=== PATIENT | male | born 1955 | race Caucasian/White ===

== ENCOUNTER 2019-11-25 10:40 | Inpatient (IN) ==
[2019-11-25] MEDS ORDERED: Isovue-370 500 ML BOTTLE IVP ONE (10:53)
[2019-11-25] MEDS ORDERED: methylPREDNISolone 125 MG/2 ML VIAL IVP ONE (11:16)
[2019-11-25] MEDS ORDERED: Ipratropium/Albuterol Neb 3 ML IH ONE (11:16)
[2019-11-25 11:20] LABS: Basophils % 0.3 %; Eosinophils # 0.1 K/mcL (0.0-0.6); Eosinophils % 0.4 %; Hematocrit 34.2 % (37.5-50.1); Hemoglobin 10.7 g/dL (12.9-16.9); Immature Granulocytes % 0.3 % (0-4); Lymphocytes # 1.3 K/mcL (0.6-4.6); Lymphocytes % 11.4 %; Mean Corpuscular HGB Conc 31.3 g/dL (31.6-35.5); Mean Corpuscular Hemoglobin 29.2 pg (28.0-33.3); Mean Corpuscular Volume 93.2 fL (83.0-100.0); Mean Platelet Volume 9.9 fL (9.4-12.4); Monocytes % 8.5 %; Neutrophils # 9.1 K/mcL (1.6-8.9); Platelet Count 306 K/mcL (140-400); Red Blood Count 3.67 M/mcL (4.19-5.50); Red Cell Distribution Width 13.8 % (11.5-14.5); Segmented Neutrophils % 79.1 %; White Blood Count 11.5 K/mcL (4.3-11.1)
[2019-11-25 11:39] LABS: Calcium 9.3 mg/dL (8.6-10.3); Potassium 4.7 mEq/L (3.5-5.1)
[2019-11-25 11:45] LABS: Troponin I 3.58 ng/mL (< 0.04)
[2019-11-25] MEDS ORDERED: cefTRIAXone 1,000 MG in Water for inj. (sterile) 10 ML IVP ONE (12:18)
[2019-11-25] MEDS ORDERED: 0.9 % Sodium Chloride 1,000 ML IVC ONE (12:22)
[2019-11-25] MEDS ORDERED: Azithromycin 500 MG in 0.9 % Sodium Chloride 250 ML IVPB ONE (12:22)
[2019-11-25] MEDS ORDERED: Aspirin 81 MG TAB.CHEW PO ONE (13:23)
[2019-11-25] MEDS ORDERED: *HR* Heparin 5,000 UNIT/ML VIAL IVP ONE (13:31)
[2019-11-25] MEDS ORDERED: *HR* Heparin 5,000 UNIT/ML VIAL IVP PRN ×2 (13:31)
[2019-11-25] MEDS ORDERED: Heparin 25,000 UNIT/250 ML D5W 25,000 UNIT/250 ML IV.SOLN IVC SCH ×2 (13:45→13:48)
[2019-11-25 14:04] LABS: INR 1.1; Prothrombin Time 12.7 Seconds (9.4-12.1)
[2019-11-25 14:06] LABS: Activated Partial Thrombo Time 39.5 Seconds (26.0-36.0)
[2019-11-25 14:37] LABS: Albumin 3.9 g/dL (3.5-5.7); Albumin/Globulin Ratio 1.2 (1.1-2.2); Bilirubin,Direct 0.2 mg/dL (0.0-0.2); Bilirubin,Indirect 0.3 mg/dL (0.0-1.0); Bilirubin,Total 0.5 mg/dL (0.3-1.0); Globulin 3.3 g/dL (2.4-3.5); Total Protein 7.2 g/dL (6.4-8.9)
[2019-11-25] MEDS ORDERED: Nitroglycerin 0.4 MG TAB.SUBL SL PRN (14:52)
[2019-11-25 14:53] LABS: Adenovirus Not Detected (Not Detect); Coronavirus 229E Not Detected (Not Detect); Coronavirus HKU1 Not Detected (Not Detect); Coronavirus NL63 Not Detected (Not Detect); Coronavirus OC43 Not Detected (Not Detect); Human Metapneumovirus Not Detected (Not Detect); Human Rhinovirus/Enterovirus Not Detected (Not Detect)
[2019-11-25 14:54] LABS: Bordetella Pertussis Not Detected (Not Detect); Chlamydophila pneumoniae Not Detected (Not Detect); Influenza A Subtype 2009 H1 Not Detected (Not Detect); Influenza B Not Detected (Not Detect); Mycoplasma pneumoniae Not Detected (Not Detect); Parainfluenza Virus 1 Not Detected (Not Detect); Parainfluenza Virus 2 Not Detected (Not Detect); Parainfluenza Virus 3 Not Detected (Not Detect); Parainfluenza Virus 4 Not Detected (Not Detect); Respiratory Syncytial Virus Not Detected (Not Detect)
[2019-11-25] MEDS ORDERED: *HR* Dextrose 50 % in Water (Vial) 50 ML VIAL IVP PRN (14:54)
[2019-11-25] MEDS ORDERED: Dextrose Gel 15 GM/37.5 ML TUBE PO PRN ×2 (14:54)
[2019-11-25] MEDS ORDERED: D5% in Water 1,000 ML IVC PRN (14:54)
[2019-11-25] MEDS ORDERED: Ondansetron 4 MG/2 ML VIAL IVP PRN (15:55)
[2019-11-25] MEDS ORDERED: Naloxone 0.4 MG/ML INJ IVP PRN (15:55)
[2019-11-25 17:19] LABS: Hematocrit 34.8 % (37.5-50.1); Hemoglobin 10.9 g/dL (12.9-16.9); Mean Corpuscular HGB Conc 31.3 g/dL (31.6-35.5); Mean Corpuscular Hemoglobin 29.4 pg (28.0-33.3); Mean Corpuscular Volume 93.8 fL (83.0-100.0); Mean Platelet Volume 9.8 fL (9.4-12.4); Platelet Count 292 K/mcL (140-400); Red Blood Count 3.71 M/mcL (4.19-5.50); Red Cell Distribution Width 13.9 % (11.5-14.5); White Blood Count 10.8 K/mcL (4.3-11.1)
[2019-11-25 17:21] LABS: Estimated Average Glucose 171 mg/dl
[2019-11-25] MEDS: Insulin LISPRO 300 UNITS/3 ML VIAL SQ SCH (17:24)
[2019-11-25 17:25] LABS: Heparin anti-factor XA UFH 0.11 IU/mL (0.30-0.70); INR 1.1; Prothrombin Time 12.6 Seconds (9.4-12.1)
[2019-11-25] MEDS: Metoprolol XL (24 HR) Succ 50 MG TAB.ER.24H PO SCH (17:25)
[2019-11-25 17:38] LABS: Chol/HDL Ratio 3.4 (0-4.9); Complement C3 116 mg/dL (87-200)
[2019-11-25] MEDS: Heparin 25,000 UNIT/250 ML D5W 25,000 UNIT/250 ML IV.SOLN IVC SCH (18:31)
[2019-11-25] MEDS: Ipratropium/Albuterol Neb 3 ML IH SCH ×2 (20:07→23:44)
[2019-11-25] MEDS ORDERED: Insulin LISPRO 300 UNITS/3 ML VIAL SQ SCH (21:00)
[2019-11-26] MEDS ORDERED: methylPREDNISolone 125 MG/2 ML VIAL IVP SCH
[2019-11-26 00:41] LABS: Bilirubin,Urine Negative (Negative); Blood,Urine Trace (Negative); Clarity,Urine Clear (Clear); Color,Urine Light-Yellow (Yellow); Glucose,Urine (UA) 70 mg/dL (Normal); Hyaline Casts,Urine Few per lpf (None Seen); Ketones,Urine Trace mg/dL (Negative); Leukocyte Esterase,Urine Negative (Negative); Nitrite,Urine Negative (Negative); PH,Urine 5.5 pH Units (5.0-8.0); Protein,Urine 200 mg/dL (Neg-Trace); RBC,Urine 15-30 per hpf (0-3); Specific Gravity,Urine > 1.030 (1.010-1.025); Squamous Epithelial Cell,Urine Few per hpf (None-Few); Urobilinogen,Urine Normal (Normal); WBC,Urine 0-3 per hpf (0-3)
[2019-11-26 00:54] LABS: Sodium, Urine 13.1 mEq/L
[2019-11-26 01:19] LABS: Basophils % 0.2 %; Eosinophils % 0.1 %; Hematocrit 31.8 % (37.5-50.1); Hemoglobin 10.1 g/dL (12.9-16.9); Immature Granulocytes % 0.4 % (0-4); Lymphocytes # 0.7 K/mcL (0.6-4.6); Lymphocytes % 6.7 %; Mean Corpuscular HGB Conc 31.8 g/dL (31.6-35.5); Mean Corpuscular Volume 94.4 fL (83.0-100.0); Mean Platelet Volume 10.4 fL (9.4-12.4); Monocytes # 0.4 K/mcL (0.0-1.3); Monocytes % 4.1 %; Neutrophils # 9.3 K/mcL (1.6-8.9); Platelet Count 257 K/mcL (140-400); Red Blood Count 3.37 M/mcL (4.19-5.50); Red Cell Distribution Width 14.1 % (11.5-14.5); Segmented Neutrophils % 88.5 %; White Blood Count 10.5 K/mcL (4.3-11.1)
[2019-11-26 01:43] LABS: Albumin 3.5 g/dL (3.5-5.7); Albumin/Globulin Ratio 1.1 (1.1-2.2); Bilirubin,Total 0.4 mg/dL (0.3-1.0); Calcium 8.8 mg/dL (8.6-10.3); Globulin 3.3 g/dL (2.4-3.5); Total Protein 6.8 g/dL (6.4-8.9); Troponin I 7.78 ng/mL (< 0.04)
[2019-11-26] MEDS: Ipratropium/Albuterol Neb 3 ML IH SCH ×6 (04:08→23:08)
[2019-11-26] MEDS: Insulin LISPRO 300 UNITS/3 ML VIAL SQ SCH ×3 (08:02→16:53)
[2019-11-26] MEDS: Metoprolol XL (24 HR) Succ 50 MG TAB.ER.24H PO SCH (08:04)
[2019-11-26] MEDS ORDERED: Perflutren Lipid Microsphere 1.3 ML in 0.9 % Sodium Chloride 8.7 ML IVP PRN (09:20)
[2019-11-26] MEDS ORDERED: Furosemide 40 MG/4 ML VIAL IVP ONE ×2 (09:23→12:30)
[2019-11-26] MEDS ORDERED: Azithromycin 500 MG in 0.9 % Sodium Chloride 250 ML IVPB ONE (09:27)
[2019-11-26] MEDS ORDERED: Albumin 25% 25gram/100mL 25 GM/100 ML IV.SOLN IVC SCH (09:30)
[2019-11-26] MEDS: Insulin DETEMIR 100 UNIT/ML X5UNITS SQ SCH ×2 (09:35→19:22)
[2019-11-26] MEDS: predniSONE 20 MG TABLET PO SCH (09:35)
[2019-11-26] MEDS: Doxycycline 100 MG CAPSULE PO SCH ×2 (11:06→19:21)
[2019-11-26] MEDS: cefTRIAXone 1,000 MG in Water for inj. (sterile) 10 ML IVP SCH (11:06)
[2019-11-26] MEDS: Albumin 25% 25gram/100mL 25 GM/100 ML IV.SOLN IVPB SCH ×3 (11:07→23:10)
[2019-11-26] MEDS: Aspirin 81 MG TAB.CHEW PO SCH (11:07)
[2019-11-26] MEDS ORDERED: Insulin LISPRO 300 UNITS/3 ML VIAL SQ SCH (15:24)
[2019-11-26] MEDS: Heparin 25,000 UNIT/250 ML D5W 25,000 UNIT/250 ML IV.SOLN IVC SCH (18:24)
[2019-11-27 01:28] LABS: Basophils % 0.2 %; Eosinophils % 0.1 %; Hematocrit 25.9 % (37.5-50.1); Immature Granulocytes % 0.7 % (0-4); Lymphocytes # 0.8 K/mcL (0.6-4.6); Lymphocytes % 6.7 %; Mean Corpuscular HGB Conc 31.7 g/dL (31.6-35.5); Mean Corpuscular Volume 91.5 fL (83.0-100.0); Mean Platelet Volume 10.7 fL (9.4-12.4); Monocytes # 1.2 K/mcL (0.0-1.3); Monocytes % 9.7 %; Neutrophils # 9.9 K/mcL (1.6-8.9); Platelet Count 255 K/mcL (140-400); Red Blood Count 2.83 M/mcL (4.19-5.50); Segmented Neutrophils % 82.6 %
[2019-11-27 01:30] LABS: Hemoglobin 8.2 g/dL (12.9-16.9)
[2019-11-27 01:45] LABS: Calcium 9.2 mg/dL (8.6-10.3); Potassium 4.8 mEq/L (3.5-5.1)
[2019-11-27] MEDS: Ipratropium/Albuterol Neb 3 ML IH SCH ×6 (03:16→23:48)
[2019-11-27] MEDS: Albumin 25% 25gram/100mL 25 GM/100 ML IV.SOLN IVPB SCH (03:58)
[2019-11-27] MEDS: Metoprolol XL (24 HR) Succ 50 MG TAB.ER.24H PO SCH (07:34)
[2019-11-27] MEDS: Doxycycline 100 MG CAPSULE PO SCH (07:34)
[2019-11-27] MEDS: Insulin DETEMIR 100 UNIT/ML X5UNITS SQ SCH ×2 (07:35→20:56)
[2019-11-27] MEDS: Aspirin 81 MG TAB.CHEW PO SCH (07:35)
[2019-11-27] MEDS: predniSONE 20 MG TABLET PO SCH (07:35)
[2019-11-27] MEDS: cefTRIAXone 1,000 MG in Water for inj. (sterile) 10 ML IVP SCH (07:36)
[2019-11-27] MEDS: Insulin LISPRO 300 UNITS/3 ML VIAL SQ SCH ×3 (07:37→16:56)
[2019-11-27] MEDS ORDERED: Azithromycin 250 MG TABLET PO SCH (09:00)
[2019-11-27] MEDS ORDERED: Albumin 25% 25gram/100mL 25 GM/100 ML IV.SOLN IVPB ONE (10:39)
[2019-11-27] MEDS ORDERED: Piperacillin/Tazobactam 3.375 GM in 0.9 % Sodium Chloride Mini Bag 100 ML IVPB SCH (11:00)
[2019-11-27] MEDS ORDERED: Furosemide 20 MG/2 ML VIAL IVP ONE (11:14)
[2019-11-27] MEDS: Piperacillin/Tazobactam 3.375 GM in 0.9 % Sodium Chloride Mini Bag 100 ML IVPB SCH ×2 (11:29→20:07)
[2019-11-27] MEDS: Pantoprazole 40 MG VIAL IVP SCH (11:49)
[2019-11-27] MEDS ORDERED: Furosemide 40 MG/4 ML VIAL IVP ONE (12:00)
[2019-11-27] MEDS ORDERED: *HR* FentaNYL (PF) 100 MCG/2 ML VIAL ONE (15:18)
[2019-11-27] MEDS ORDERED: Lidocaine -MPF 2% 2 ML VIAL ONE (15:19)
[2019-11-27] MEDS ORDERED: Lidocaine -MPF 4% 5 ML AMPUL ONE (15:19)
[2019-11-27] MEDS ORDERED: Dexamethasone 4 MG/ML VIAL ONE (15:19)
[2019-11-27] MEDS ORDERED: Ondansetron 4 MG/2 ML VIAL ONE (15:19)
[2019-11-27] MEDS ORDERED: *HR* Etomidate 40 MG/20 ML VIAL IVP ONE (15:22)
[2019-11-27] MEDS ORDERED: *HR* EPINEPHrine 1 MG/10 ML SYRINGE INTRATRACH ONE (15:50)
[2019-11-27] MEDS: MethylPREDNISolone 40 MG/ML VIAL IVP SCH ×2 (16:56→23:31)
[2019-11-27] MEDS: Doxycycline 100 MG in 0.9 % Sodium Chloride Mini Bag 100 ML IVPB SCH (16:56)
[2019-11-27] MEDS ORDERED: Insulin LISPRO 300 UNITS/3 ML VIAL SQ SCH ×2 (17:36)
[2019-11-27 21:02] LABS: Appearance of Body Fluid Cloudy (Clear); Source of Body Fluid RIGHT UPPER LOBE LUN; Volume of Body Fluid 16 mL
[2019-11-27 21:28] LABS: Appearance of Body Fluid Clear (Clear); Source of Body Fluid RIGHT UPPER LOBE LUN; Volume of Body Fluid 17 mL
[2019-11-28] MEDS: Piperacillin/Tazobactam 3.375 GM in 0.9 % Sodium Chloride Mini Bag 100 ML IVPB SCH ×3 (02:47→19:21)
[2019-11-28] MEDS: Ipratropium/Albuterol Neb 3 ML IH SCH ×6 (04:06→23:22)
[2019-11-28 05:04] LABS: Hematocrit 26.7 % (37.5-50.1); Hemoglobin 8.6 g/dL (12.9-16.9); Immature Granulocytes % 0.8 % (0-4); Lymphocytes # 0.4 K/mcL (0.6-4.6); Lymphocytes % 5.7 %; Mean Corpuscular HGB Conc 32.2 g/dL (31.6-35.5); Mean Corpuscular Hemoglobin 29.6 pg (28.0-33.3); Mean Corpuscular Volume 91.8 fL (83.0-100.0); Mean Platelet Volume 10.8 fL (9.4-12.4); Monocytes # 0.2 K/mcL (0.0-1.3); Neutrophils # 6.7 K/mcL (1.6-8.9); Platelet Count 239 K/mcL (140-400); Red Blood Count 2.91 M/mcL (4.19-5.50); Red Cell Distribution Width 14.3 % (11.5-14.5); Segmented Neutrophils % 91.5 %; White Blood Count 7.3 K/mcL (4.3-11.1)
[2019-11-28 05:32] LABS: Calcium 9.2 mg/dL (8.6-10.3)
[2019-11-28] MEDS ORDERED: Insulin LISPRO 300 UNITS/3 ML VIAL SQ SCH (06:00)
[2019-11-28] MEDS: Doxycycline 100 MG in 0.9 % Sodium Chloride Mini Bag 100 ML IVPB SCH ×2 (06:06→17:08)
[2019-11-28] MEDS: MethylPREDNISolone 40 MG/ML VIAL IVP SCH ×2 (07:37→17:09)
[2019-11-28] MEDS: Pantoprazole 40 MG VIAL IVP SCH (07:37)
[2019-11-28] MEDS: Insulin DETEMIR 100 UNIT/ML X5UNITS SQ SCH ×2 (07:38→21:22)
[2019-11-28] MEDS: Aspirin 81 MG TAB.CHEW PO SCH (07:38)
[2019-11-28] MEDS: Metoprolol XL (24 HR) Succ 50 MG TAB.ER.24H PO SCH (07:38)
[2019-11-28 07:51] LABS: Serine Protease-3 Antibody 6 AU/mL (0-19)
[2019-11-28] MEDS ORDERED: Furosemide 40 MG in 0.9 % Sodium Chloride 50 ML IV ONE (10:36)
[2019-11-28] MEDS ORDERED: Insulin DETEMIR 100 UNIT/ML X5UNITS SQ SCH (11:00)
[2019-11-28] MEDS: Insulin LISPRO 300 UNITS/3 ML VIAL SQ SCH ×4 (11:27→21:21)
[2019-11-28] MEDS ORDERED: Insulin DETEMIR 100 UNIT/ML X5UNITS SQ ONE (11:42)
[2019-11-29] MEDS: MethylPREDNISolone 40 MG/ML VIAL IVP SCH ×4 (00:06→23:18)
[2019-11-29 01:24] LABS: Basophils % 0.1 %; Eosinophils % 0.1 %; Hematocrit 26.5 % (37.5-50.1); Hemoglobin 8.5 g/dL (12.9-16.9); Immature Granulocytes % 1.1 % (0-4); Lymphocytes # 0.6 K/mcL (0.6-4.6); Lymphocytes % 5.9 %; Mean Corpuscular HGB Conc 32.1 g/dL (31.6-35.5); Mean Corpuscular Hemoglobin 30.2 pg (28.0-33.3); Mean Corpuscular Volume 94.3 fL (83.0-100.0); Mean Platelet Volume 10.8 fL (9.4-12.4); Monocytes # 0.7 K/mcL (0.0-1.3); Neutrophils # 8.4 K/mcL (1.6-8.9); Platelet Count 241 K/mcL (140-400); Red Blood Count 2.81 M/mcL (4.19-5.50); Red Cell Distribution Width 14.1 % (11.5-14.5); Segmented Neutrophils % 85.8 %; White Blood Count 9.8 K/mcL (4.3-11.1)
[2019-11-29 01:43] LABS: Calcium 9.5 mg/dL (8.6-10.3); Potassium 4.9 mEq/L (3.5-5.1)
[2019-11-29] MEDS: Piperacillin/Tazobactam 3.375 GM in 0.9 % Sodium Chloride Mini Bag 100 ML IVPB SCH ×2 (02:17→12:03)
[2019-11-29] MEDS: Ipratropium/Albuterol Neb 3 ML IH SCH ×6 (03:45→23:33)
[2019-11-29] MEDS: Insulin LISPRO 300 UNITS/3 ML VIAL SQ SCH ×4 (06:26→21:40)
[2019-11-29] MEDS: Doxycycline 100 MG in 0.9 % Sodium Chloride Mini Bag 100 ML IVPB SCH (06:27)
[2019-11-29] MEDS: Metoprolol XL (24 HR) Succ 50 MG TAB.ER.24H PO SCH (08:07)
[2019-11-29] MEDS: Aspirin 81 MG TAB.CHEW PO SCH (08:07)
[2019-11-29] MEDS: Pantoprazole 40 MG VIAL IVP SCH (08:08)
[2019-11-29] MEDS: Insulin DETEMIR 100 UNIT/ML X5UNITS SQ SCH ×2 (08:08→21:49)
[2019-11-29] MEDS ORDERED: Doxycycline 100 MG CAPSULE PO SCH ×2 (09:00→21:00)
[2019-11-29] MEDS ORDERED: Insulin DETEMIR 100 UNIT/ML X5UNITS SQ ONE (10:09)
[2019-11-29] MEDS ORDERED: *HR* Midazolam HCl 2 MG/2 ML VIAL ONE (10:43)
[2019-11-29] MEDS ORDERED: Nitroglycerin 1,000 MCG/10 ML VIAL IV ONE (10:44)
[2019-11-29] MEDS ORDERED: 0.9 % Sodium Chloride 2,000 ML ONE (10:44)
[2019-11-29] MEDS ORDERED: Heparin 1,000 UNITS/500 mL 500 ML ONE (10:44)
[2019-11-29] MEDS ORDERED: *HR* Heparin 10,000 UNIT/10 ML VIAL ONE (10:44)
[2019-11-29] MEDS ORDERED: ISOVUE-370 200 ML INFUS..BTL ONE (10:44)
[2019-11-29] MEDS ORDERED: Acetaminophen 325 MG TABLET PO PRN (11:35)
[2019-11-29] MEDS ORDERED: *HR* Heparin 5,000 UNIT/ML VIAL IVP ONE (13:22)
[2019-11-29] MEDS ORDERED: *HR* Heparin 5,000 UNIT/ML VIAL IVP PRN (13:22)
[2019-11-29 14:22] LABS: Hematocrit 28.5 % (37.5-50.1); Hemoglobin 8.8 g/dL (12.9-16.9); Mean Corpuscular HGB Conc 30.9 g/dL (31.6-35.5); Mean Corpuscular Hemoglobin 29.1 pg (28.0-33.3); Mean Corpuscular Volume 94.4 fL (83.0-100.0); Mean Platelet Volume 10.9 fL (9.4-12.4); Platelet Count 276 K/mcL (140-400); Red Blood Count 3.02 M/mcL (4.19-5.50); Red Cell Distribution Width 14.3 % (11.5-14.5)
[2019-11-29] MEDS ORDERED: Furosemide 40 MG/4 ML VIAL IVP ONE (14:24)
[2019-11-29 14:26] LABS: Heparin anti-factor XA UFH 0.06 IU/mL (0.30-0.70); INR 1.1; Prothrombin Time 12.1 Seconds (9.4-12.1)
[2019-11-29] MEDS: Heparin 25,000 UNIT/250 ML D5W 25,000 UNIT/250 ML IV.SOLN IVC SCH (14:35)
[2019-11-29] MEDS ORDERED: Insulin DETEMIR 100 UNIT/ML X5UNITS SQ SCH (21:00)
[2019-11-29] MEDS: *HR* Heparin 5,000 UNIT/ML VIAL IVP PRN (21:40)
[2019-11-29] MEDS: *HR* Acetylcysteine 20% 600 MG/3 ML ORAL SYRINGE PO SCH (21:40)
[2019-11-30 03:43] LABS: Basophils % 0.1 %; Hematocrit 28.5 % (37.5-50.1); Hemoglobin 8.9 g/dL (12.9-16.9); Lymphocytes # 0.8 K/mcL (0.6-4.6); Lymphocytes % 8.5 %; Mean Corpuscular HGB Conc 31.2 g/dL (31.6-35.5); Mean Corpuscular Hemoglobin 29.3 pg (28.0-33.3); Mean Corpuscular Volume 93.8 fL (83.0-100.0); Monocytes # 0.6 K/mcL (0.0-1.3); Monocytes % 6.1 %; Neutrophils # 8.2 K/mcL (1.6-8.9); Platelet Count 275 K/mcL (140-400); Red Blood Count 3.04 M/mcL (4.19-5.50); Red Cell Distribution Width 14.5 % (11.5-14.5); Segmented Neutrophils % 84.3 %; White Blood Count 9.7 K/mcL (4.3-11.1)
[2019-11-30] MEDS: Ipratropium/Albuterol Neb 3 ML IH SCH ×7 (03:45→23:43)
[2019-11-30 04:09] LABS: Calcium 9.7 mg/dL (8.6-10.3); Potassium 5.2 mEq/L (3.5-5.1)
[2019-11-30] MEDS: Insulin LISPRO 300 UNITS/3 ML VIAL SQ SCH ×6 (08:35→20:28)
[2019-11-30] MEDS: MethylPREDNISolone 40 MG/ML VIAL IVP SCH (08:35)
[2019-11-30] MEDS: Metoprolol XL (24 HR) Succ 50 MG TAB.ER.24H PO SCH (08:35)
[2019-11-30] MEDS: Aspirin 81 MG TAB.CHEW PO SCH (08:35)
[2019-11-30] MEDS: Insulin DETEMIR 100 UNIT/ML X5UNITS SQ SCH ×2 (08:38→20:22)
[2019-11-30] MEDS ORDERED: Milrinone Lactate 10 MG/10 ML VIAL IVP ONE (10:23)
[2019-11-30] MEDS: *HR* Acetylcysteine 20% 600 MG/3 ML ORAL SYRINGE PO SCH ×2 (11:02→20:21)
[2019-11-30] MEDS: Milrinone Premix 20 MG/100 ML 20 MG/100 ML BAG IVC SCH ×2 (11:30→21:00)
[2019-11-30] MEDS ORDERED: Furosemide 20 MG TABLET PO PRN (14:17)
[2019-11-30] MEDS: Heparin 25,000 UNIT/250 ML D5W 25,000 UNIT/250 ML IV.SOLN IVC SCH (15:13)
[2019-11-30] MEDS: Azithromycin 500 MG in 0.9 % Sodium Chloride 250 ML IVPB SCH (17:00)
[2019-11-30] MEDS: cefTRIAXone 2,000 MG in Water for inj. (sterile) 20 ML IVP SCH (17:00)
[2019-12-01] MEDS ORDERED: Saline Nasal Spray 44 ML BOTTLE NS PRN (02:40)
[2019-12-01] MEDS: Ipratropium/Albuterol Neb 3 ML IH SCH ×6 (03:14→23:19)
[2019-12-01 05:25] LABS: Hematocrit 28.1 % (37.5-50.1); Hemoglobin 8.9 g/dL (12.9-16.9); Mean Corpuscular HGB Conc 31.7 g/dL (31.6-35.5); Mean Corpuscular Hemoglobin 29.3 pg (28.0-33.3); Mean Corpuscular Volume 92.4 fL (83.0-100.0); Mean Platelet Volume 10.4 fL (9.4-12.4); Platelet Count 282 K/mcL (140-400); Red Blood Count 3.04 M/mcL (4.19-5.50); Red Cell Distribution Width 14.4 % (11.5-14.5); White Blood Count 9.8 K/mcL (4.3-11.1)
[2019-12-01 05:42] LABS: Calcium 8.9 mg/dL (8.6-10.3); Potassium 4.5 mEq/L (3.5-5.1)
[2019-12-01] MEDS: Insulin LISPRO 300 UNITS/3 ML VIAL SQ SCH ×7 (07:42→19:45)
[2019-12-01] MEDS: *HR* Acetylcysteine 20% 600 MG/3 ML ORAL SYRINGE PO SCH ×2 (08:12→20:05)
[2019-12-01] MEDS: Insulin DETEMIR 100 UNIT/ML X5UNITS SQ SCH ×2 (08:13→19:49)
[2019-12-01] MEDS: predniSONE 20 MG TABLET PO SCH (08:14)
[2019-12-01] MEDS: Metoprolol XL (24 HR) Succ 50 MG TAB.ER.24H PO SCH (08:14)
[2019-12-01] MEDS: Aspirin 81 MG TAB.CHEW PO SCH (08:14)
[2019-12-01] MEDS: Milrinone Premix 20 MG/100 ML 20 MG/100 ML BAG IVC SCH (09:23)
[2019-12-01] MEDS: *HR* Heparin 5,000 UNIT/ML VIAL IVP PRN (10:48)
[2019-12-01] MEDS: Heparin 25,000 UNIT/250 ML D5W 25,000 UNIT/250 ML IV.SOLN IVC SCH (12:17)
[2019-12-01] MEDS: Azithromycin 500 MG in 0.9 % Sodium Chloride 250 ML IVPB SCH (16:43)
[2019-12-01] MEDS: cefTRIAXone 2,000 MG in Water for inj. (sterile) 20 ML IVP SCH (16:44)
[2019-12-01] MEDS ORDERED: Furosemide 40 MG/4 ML VIAL IVP ONE (21:46)
[2019-12-02] MEDS: Milrinone Premix 20 MG/100 ML 20 MG/100 ML BAG IVC SCH ×2 (01:14→20:19)
[2019-12-02] MEDS: Ipratropium/Albuterol Neb 3 ML IH SCH ×6 (04:29→23:37)
[2019-12-02] MEDS: predniSONE 20 MG TABLET PO SCH (07:47)
[2019-12-02] MEDS: Insulin LISPRO 300 UNITS/3 ML VIAL SQ SCH ×7 (07:47→20:20)
[2019-12-02] MEDS: Insulin DETEMIR 100 UNIT/ML X5UNITS SQ SCH ×2 (07:47→20:18)
[2019-12-02] MEDS: Aspirin 81 MG TAB.CHEW PO SCH (07:47)
[2019-12-02] MEDS: Metoprolol XL (24 HR) Succ 50 MG TAB.ER.24H PO SCH (07:47)
[2019-12-02] MEDS: Heparin 25,000 UNIT/250 ML D5W 25,000 UNIT/250 ML IV.SOLN IVC SCH (07:49)
[2019-12-02 10:29] LABS: Basophils % 0.2 %; Eosinophils # 0.4 K/mcL (0.0-0.6); Eosinophils % 4.1 %; Hematocrit 29.2 % (37.5-50.1); Hemoglobin 9.3 g/dL (12.9-16.9); Immature Granulocytes % 1.4 % (0-4); Lymphocytes # 1.9 K/mcL (0.6-4.6); Lymphocytes % 19.3 %; Mean Corpuscular HGB Conc 31.8 g/dL (31.6-35.5); Mean Corpuscular Hemoglobin 29.8 pg (28.0-33.3); Mean Corpuscular Volume 93.6 fL (83.0-100.0); Mean Platelet Volume 10.4 fL (9.4-12.4); Monocytes % 9.9 %; Neutrophils # 6.4 K/mcL (1.6-8.9); Platelet Count 293 K/mcL (140-400); Red Blood Count 3.12 M/mcL (4.19-5.50); Red Cell Distribution Width 14.4 % (11.5-14.5); Segmented Neutrophils % 65.1 %; White Blood Count 9.9 K/mcL (4.3-11.1)
[2019-12-02 10:48] LABS: Calcium 9.2 mg/dL (8.6-10.3); Potassium 4.3 mEq/L (3.5-5.1)
[2019-12-02] MEDS: *HR* Acetylcysteine 20% 600 MG/3 ML ORAL SYRINGE PO SCH ×2 (12:27→20:19)
[2019-12-02] MEDS: Azithromycin 500 MG in 0.9 % Sodium Chloride 250 ML IVPB SCH (15:25)
[2019-12-02] MEDS: cefTRIAXone 2,000 MG in Water for inj. (sterile) 20 ML IVP SCH (15:26)
[2019-12-03 00:21] LABS: Basophils % 0.1 %; Eosinophils # 0.2 K/mcL (0.0-0.6); Eosinophils % 1.7 %; Hematocrit 26.1 % (37.5-50.1); Hemoglobin 8.4 g/dL (12.9-16.9); Immature Granulocytes % 1.2 % (0-4); Mean Corpuscular HGB Conc 32.2 g/dL (31.6-35.5); Mean Corpuscular Hemoglobin 29.6 pg (28.0-33.3); Mean Corpuscular Volume 91.9 fL (83.0-100.0); Mean Platelet Volume 10.9 fL (9.4-12.4); Neutrophils # 6.7 K/mcL (1.6-8.9); Platelet Count 299 K/mcL (140-400); Red Blood Count 2.84 M/mcL (4.19-5.50); Red Cell Distribution Width 14.2 % (11.5-14.5)
[2019-12-03 00:29] LABS: Calcium 8.7 mg/dL (8.6-10.3); Potassium 4.8 mEq/L (3.5-5.1)
[2019-12-03] MEDS: Ipratropium/Albuterol Neb 3 ML IH SCH ×6 (03:51→23:45)
[2019-12-03 04:25] LABS: Basophils % 0.1 %; Eosinophils # 0.3 K/mcL (0.0-0.6); Eosinophils % 3.5 %; Hematocrit 26.3 % (37.5-50.1); Hemoglobin 8.4 g/dL (12.9-16.9); Lymphocytes # 2.7 K/mcL (0.6-4.6); Lymphocytes % 27.8 %; Mean Corpuscular HGB Conc 31.9 g/dL (31.6-35.5); Mean Corpuscular Hemoglobin 29.3 pg (28.0-33.3); Mean Corpuscular Volume 91.6 fL (83.0-100.0); Mean Platelet Volume 10.6 fL (9.4-12.4); Monocytes % 10.1 %; Neutrophils # 5.6 K/mcL (1.6-8.9); Platelet Count 291 K/mcL (140-400); Red Blood Count 2.87 M/mcL (4.19-5.50); Red Cell Distribution Width 14.2 % (11.5-14.5); Segmented Neutrophils % 57.5 %; White Blood Count 9.8 K/mcL (4.3-11.1)
[2019-12-03] MEDS: Heparin 25,000 UNIT/250 ML D5W 25,000 UNIT/250 ML IV.SOLN IVC SCH (04:33)
[2019-12-03 04:45] LABS: Calcium 8.9 mg/dL (8.6-10.3); Potassium 4.4 mEq/L (3.5-5.1)
[2019-12-03] MEDS: Insulin LISPRO 300 UNITS/3 ML VIAL SQ SCH ×7 (07:38→20:45)
[2019-12-03] MEDS: Insulin DETEMIR 100 UNIT/ML X5UNITS SQ SCH ×2 (07:38→20:44)
[2019-12-03] MEDS: *HR* Acetylcysteine 20% 600 MG/3 ML ORAL SYRINGE PO SCH ×2 (07:39→20:44)
[2019-12-03] MEDS: predniSONE 20 MG TABLET PO SCH (07:39)
[2019-12-03] MEDS: Metoprolol XL (24 HR) Succ 50 MG TAB.ER.24H PO SCH (07:39)
[2019-12-03] MEDS: Aspirin 81 MG TAB.CHEW PO SCH (07:39)
[2019-12-03] MEDS: cefTRIAXone 2,000 MG in Water for inj. (sterile) 20 ML IVP SCH (15:42)
[2019-12-03] MEDS: Azithromycin 500 MG in 0.9 % Sodium Chloride 250 ML IVPB SCH (15:43)
[2019-12-03] MEDS: Milrinone Premix 20 MG/100 ML 20 MG/100 ML BAG IVC SCH (15:43)
[2019-12-04] MEDS: Heparin 25,000 UNIT/250 ML D5W 25,000 UNIT/250 ML IV.SOLN IVC SCH ×2 (00:18→21:54)
[2019-12-04 00:58] LABS: Basophils % 0.1 %; Eosinophils # 0.4 K/mcL (0.0-0.6); Eosinophils % 3.9 %; Hematocrit 27.7 % (37.5-50.1); Hemoglobin 8.9 g/dL (12.9-16.9); Lymphocytes # 3.1 K/mcL (0.6-4.6); Lymphocytes % 28.7 %; Mean Corpuscular HGB Conc 32.1 g/dL (31.6-35.5); Mean Corpuscular Hemoglobin 29.7 pg (28.0-33.3); Mean Corpuscular Volume 92.3 fL (83.0-100.0); Mean Platelet Volume 10.6 fL (9.4-12.4); Monocytes % 9.5 %; Neutrophils # 6.1 K/mcL (1.6-8.9); Platelet Count 296 K/mcL (140-400); Red Cell Distribution Width 14.4 % (11.5-14.5); Segmented Neutrophils % 56.8 %; White Blood Count 10.7 K/mcL (4.3-11.1)
[2019-12-04 01:18] LABS: Calcium 9.1 mg/dL (8.6-10.3); Potassium 4.3 mEq/L (3.5-5.1)
[2019-12-04] MEDS: Ipratropium/Albuterol Neb 3 ML IH SCH ×5 (04:42→20:22)
[2019-12-04] MEDS: Insulin DETEMIR 100 UNIT/ML X5UNITS SQ SCH ×2 (07:38→21:43)
[2019-12-04] MEDS: Insulin LISPRO 300 UNITS/3 ML VIAL SQ SCH ×7 (07:39→21:45)
[2019-12-04] MEDS: Metoprolol XL (24 HR) Succ 50 MG TAB.ER.24H PO SCH (07:40)
[2019-12-04] MEDS: Aspirin 81 MG TAB.CHEW PO SCH (07:40)
[2019-12-04] MEDS: predniSONE 20 MG TABLET PO SCH (07:40)
[2019-12-04] MEDS: Milrinone Premix 20 MG/100 ML 20 MG/100 ML BAG IVC SCH ×2 (08:16→12:00)
[2019-12-04] MEDS ORDERED: Furosemide 40 MG/4 ML VIAL IVP ONE (17:14)
[2019-12-04] MEDS: Chlorhexidine Rinse 15 ML MOUTHWASH MM SCH (21:43)
[2019-12-05] MEDS: Ipratropium/Albuterol Neb 3 ML IH SCH ×6 (00:03→20:08)
[2019-12-05 01:18] LABS: Basophils % 0.1 %; Eosinophils # 0.3 K/mcL (0.0-0.6); Eosinophils % 3.1 %; Hematocrit 28.4 % (37.5-50.1); Hemoglobin 9.1 g/dL (12.9-16.9); Immature Granulocytes % 0.6 % (0-4); Lymphocytes # 2.8 K/mcL (0.6-4.6); Lymphocytes % 28.9 %; Mean Corpuscular Hemoglobin 30.4 pg (28.0-33.3); Monocytes # 0.8 K/mcL (0.0-1.3); Monocytes % 8.5 %; Neutrophils # 5.7 K/mcL (1.6-8.9); Platelet Count 274 K/mcL (140-400); Red Blood Count 2.99 M/mcL (4.19-5.50); Red Cell Distribution Width 14.7 % (11.5-14.5); Segmented Neutrophils % 58.8 %; White Blood Count 9.7 K/mcL (4.3-11.1)
[2019-12-05 01:38] LABS: Calcium 9.1 mg/dL (8.6-10.3)
[2019-12-05] MEDS: Chlorhexidine Rinse 15 ML MOUTHWASH MM SCH ×2 (05:50→21:11)
[2019-12-05] MEDS ORDERED: Nitroglycerin 0 MG/0 ML INFUS..BTL IVC ONE ×2 (06:25→09:44)
[2019-12-05] MEDS ORDERED: NiCARdipine 2.5 MG/10 ML Syringe IVPB ONE (06:26)
[2019-12-05] MEDS ORDERED: *HR* Midazolam HCl 5 MG/5 ML VIAL IVP ONE (06:33)
[2019-12-05] MEDS ORDERED: *HR* FentaNYL (PF) 1,000 MCG/20 ML VIAL ONE (06:33)
[2019-12-05] MEDS ORDERED: *HR* Rocuronium Bromide 50 MG/5 ML VIAL ONE (06:39)
[2019-12-05] MEDS ORDERED: *HR* PHENYLEPHRINE 1,000 MCG/10 ML SYRINGE IVP ONE (06:39)
[2019-12-05] MEDS ORDERED: *HR* Etomidate 20 MG/10 ML AMPUL IVP ONE (06:40)
[2019-12-05] MEDS ORDERED: Famotidine 20 MG/2 ML VIAL ONE (06:40)
[2019-12-05] MEDS ORDERED: Tranexamic Acid 1,000 MG/10 ML VIAL ONE ×2 (06:42→09:10)
[2019-12-05] MEDS ORDERED: Calcium Gluconate 1,000 MG/10 ML VIAL ONE (06:42)
[2019-12-05] MEDS ORDERED: Protamine Sulfate 250 MG/25 ML VIAL IVP ONE (06:42)
[2019-12-05] MEDS ORDERED: CeFAZolin Syr 2,000MG/20 ML 2,000 MG/20 ML SYRINGE IVPB ONE (07:00)
[2019-12-05] MEDS ORDERED: Norepinephrine 4 MG in 0.9 % Sodium Chloride 250 ML IVC PRN (07:45)
[2019-12-05] MEDS ORDERED: Dextrose 50 % in Water (Vial) 30 ML, Sodium Bicarbonate 20 MEQ, Lidocaine 1% 5 ML, Insu... TH ONE ×3 (07:45)
[2019-12-05] MEDS ORDERED: Insulin Human Regular 100 UNIT in 0.9 % Sodium Chloride 100 ML IV PRN (07:45)
[2019-12-05] MEDS ORDERED: Heparin 15,000 UNIT in 0.9 % Sodium Chloride 500 ML IV ONE (07:45)
[2019-12-05] MEDS ORDERED: Dextrose 50 % in Water (Vial) 30 ML, Sodium Bicarbonate 20 MEQ, Potassium Chloride 15 M... TH ONE (07:45)
[2019-12-05] MEDS ORDERED: Albumin Human 5% 50.0 GM/1,000 ML IV.SOLN ONE (09:43)
[2019-12-05] MEDS ORDERED: niCARdipine 20 MG/200 ML MLS IVC ONE (09:45)
[2019-12-05] MEDS ORDERED: Insulin Regular, Human 100 UNIT/ML IV PRN (11:26)
[2019-12-05] MEDS ORDERED: Potassium Chloride 40 MEQ/200 ML BAG IVPB PRN (11:26)
[2019-12-05] MEDS ORDERED: *HR* Dextrose 50 % in Water (Vial) 50 ML VIAL IVP PRN (11:26)
[2019-12-05] MEDS ORDERED: Ondansetron 4 MG/2 ML VIAL IVP PRN (11:29)
[2019-12-05] MEDS ORDERED: Acetaminophen 650 MG RECTAL SUPP RC PRN (11:29)
[2019-12-05] MEDS ORDERED: 0.9 % Sodium Chloride w KCl 20 MEQ/1,000 ML MLS IVC SCH (11:30)
[2019-12-05] MEDS ORDERED: Calcium Gluconate 1gm/50mL 1 GM/50 ML BAG IVPB PRN (11:30)
[2019-12-05] MEDS ORDERED: Insulin Human Regular 100 UNIT in 0.9 % Sodium Chloride 100 ML IVC SCH (11:30)
[2019-12-05] MEDS: Milrinone Premix 20 MG/100 ML 20 MG/100 ML BAG IVC SCH ×2 (11:57→21:11)
[2019-12-05 12:11] LABS: ABG Base Excess 1 mEq/L (-2 to 3); ABG HCO3 26 mEq/L (21-27); ABG Oxygen Saturation 91 % (95-98); ABG PCO2 48 mmHg (35-45); ABG PH 7.35 pH Units (7.32-7.45); ABG PO2 66 mmHg (85-104); ABG TCO2 28 mEq/L (20-26); Blood Gas VT 600 cc
[2019-12-05 12:22] LABS: Basophils % 0.2 %; Eosinophils % 1.9 %; Immature Granulocytes % 1.4 % (0-4); Lymphocytes # 2.5 K/mcL (0.6-4.6); Lymphocytes % 13.8 %; Mean Corpuscular HGB Conc 32.1 g/dL (31.6-35.5); Mean Corpuscular Hemoglobin 29.7 pg (28.0-33.3); Mean Corpuscular Volume 92.6 fL (83.0-100.0); Mean Platelet Volume 10.6 fL (9.4-12.4); Monocytes % 5.7 %; Red Blood Count 3.23 M/mcL (4.19-5.50); Red Cell Distribution Width 14.9 % (11.5-14.5)
[2019-12-05 12:37] LABS: Activated Partial Thrombo Time 29.8 Seconds (26.0-36.0)
[2019-12-05 12:38] LABS: BUN/Creatinine Ratio 46 (6-26); Blood Urea Nitrogen 62 mg/dL (8-23); Calcium 9.2 mg/dL (8.6-10.3); Carbon Dioxide 27 mEq/L (23-29); Chloride 111 mEq/L (98-107); Glucose 103 mg/dL (70-105); Magnesium 2.6 mg/dL (1.6-2.6); Osmolality,Calculated 314 (280-300); Potassium 4.9 mEq/L (3.5-5.1); Sodium 143 mEq/L (136-145); eGFR For African Americans > 60 (> 60); eGFR For Non-African Americans 53 (> 60)
[2019-12-05 12:40] LABS: INR 1.3; Prothrombin Time 14.6 Seconds (9.4-12.1)
[2019-12-05 13:02] LABS: Eosinophils # 0.4 K/mcL (0.0-0.6); White Blood Count 18.2 K/mcL (4.3-11.1)
[2019-12-05 13:05] LABS: Hematocrit 29.9 % (37.5-50.1); Hemoglobin 9.6 g/dL (12.9-16.9); Platelet Count 116 K/mcL (140-400)
[2019-12-05 13:06] LABS: Platelet Estimate Decreased (Normal)
[2019-12-05] MEDS: *HR* FentaNYL (PF) 100 MCG/2 ML VIAL IVP PRN ×3 (13:16→22:59)
[2019-12-05] MEDS: niCARdipine 20 MG/200 ML MLS IVC SCH ×4 (13:16→22:41)
[2019-12-05] MEDS: *HR* OxyCODONE/APAP 5/325 TABLET PO PRN ×3 (13:23→22:34)
[2019-12-05] MEDS: Metoclopramide 10 MG/2 ML VIAL IVP SCH ×3 (13:23→22:59)
[2019-12-05] MEDS: predniSONE 10 MG TABLET PO SCH (13:31)
[2019-12-05] MEDS: Pantoprazole 40 MG VIAL IVP SCH (13:45)
[2019-12-05] MEDS: 0.9 % Sodium Chloride 1,000 ML IVC SCH (13:46)
[2019-12-05] MEDS ORDERED: Lidocaine 2% Syringe 100 MG/5 ML IVP ONE (13:58)
[2019-12-05] MEDS ORDERED: *HR* Phenylephrine 10 MG/ML VIAL IVC ONE (13:58)
[2019-12-05] MEDS ORDERED: Tranexamic Acid 1,000 MG/10 ML VIAL IR ONE (13:58)
[2019-12-05] MEDS ORDERED: Sodium Bicarbonate 50 MEQ/50 ML VIAL IVP ONE (13:58)
[2019-12-05] MEDS ORDERED: Albumin 25% 25gram/100mL 25 GM/100 ML IV.SOLN IVPB ONE (13:58)
[2019-12-05] MEDS ORDERED: Mannitol 25% vial 12.5 GM/50 ML VIAL IVPB ONE (13:58)
[2019-12-05] MEDS ORDERED: *HR* Heparin 10,000 UNIT/10 ML VIAL IR ONE (13:58)
[2019-12-05 15:02] LABS: ABG Base Excess -1 mEq/L (-2 to 3); ABG HCO3 23 mEq/L (21-27); ABG Oxygen Saturation 92 % (95-98); ABG PCO2 37 mmHg (35-45); ABG PO2 63 mmHg (85-104); ABG TCO2 25 mEq/L (20-26)
[2019-12-05] MEDS: Albumin Human 5% 12.5 GM/250 ML IV.SOLN IVPB PRN ×2 (15:30→22:36)
[2019-12-05 15:54] LABS: ABG Base Excess 0 mEq/L (-2 to 3); ABG HCO3 24 mEq/L (21-27); ABG Oxygen Saturation 92 % (95-98); ABG PCO2 36 mmHg (35-45); ABG PH 7.43 pH Units (7.32-7.45); ABG PO2 61 mmHg (85-104); ABG TCO2 25 mEq/L (20-26)
[2019-12-05] MEDS: CeFAZolin 2 GM/120 ML BAG IVPB SCH ×2 (16:20→23:10)
[2019-12-05 16:21] LABS: Hematocrit 28.4 % (37.5-50.1); Hemoglobin 9.1 g/dL (12.9-16.9); Mean Corpuscular Hemoglobin 29.5 pg (28.0-33.3); Mean Corpuscular Volume 92.2 fL (83.0-100.0); Platelet Count 165 K/mcL (140-400); Red Blood Count 3.08 M/mcL (4.19-5.50); Red Cell Distribution Width 15.3 % (11.5-14.5)
[2019-12-05 16:38] LABS: INR 1.2; Prothrombin Time 13.3 Seconds (9.4-12.1)
[2019-12-05 16:41] LABS: Activated Partial Thrombo Time 29.2 Seconds (26.0-36.0)
[2019-12-05] MEDS: Norepinephrine 4 MG/254 ML IV.SOLN IVC SCH (18:38)
[2019-12-06] MEDS: niCARdipine 20 MG/200 ML MLS IVC SCH ×3 (00:28→21:14)
[2019-12-06] MEDS: *HR* FentaNYL (PF) 100 MCG/2 ML VIAL IVP PRN ×2 (02:16→06:53)
[2019-12-06] MEDS: *HR* OxyCODONE/APAP 5/325 TABLET PO PRN ×4 (05:10→23:49)
[2019-12-06] MEDS: Metoclopramide 10 MG/2 ML VIAL IVP SCH ×4 (05:11→23:48)
[2019-12-06 05:35] LABS: Basophils % 0.1 %; Eosinophils # 0.1 K/mcL (0.0-0.6); Eosinophils % 1.1 %; Hematocrit 26.1 % (37.5-50.1); Hemoglobin 8.3 g/dL (12.9-16.9); Immature Granulocytes % 0.6 % (0-4); Lymphocytes # 1.7 K/mcL (0.6-4.6); Lymphocytes % 14.2 %; Mean Corpuscular HGB Conc 31.8 g/dL (31.6-35.5); Mean Corpuscular Hemoglobin 29.6 pg (28.0-33.3); Mean Corpuscular Volume 93.2 fL (83.0-100.0); Mean Platelet Volume 10.9 fL (9.4-12.4); Monocytes # 1.1 K/mcL (0.0-1.3); Monocytes % 8.9 %; Platelet Count 127 K/mcL (140-400); Red Cell Distribution Width 15.2 % (11.5-14.5); Segmented Neutrophils % 75.1 %
[2019-12-06 05:36] LABS: INR 1.2; Prothrombin Time 13.8 Seconds (9.4-12.1)
[2019-12-06 05:39] LABS: Activated Partial Thrombo Time 32.1 Seconds (26.0-36.0)
[2019-12-06 05:52] LABS: Calcium 8.5 mg/dL (8.6-10.3); Magnesium 2.1 mg/dL (1.6-2.6)
[2019-12-06] MEDS ORDERED: *HR* Dextrose 50 % in Water (Vial) 50 ML VIAL IVP PRN (07:45)
[2019-12-06] MEDS ORDERED: Dextrose Gel 15 GM/37.5 ML TUBE PO PRN ×2 (07:45)
[2019-12-06] MEDS ORDERED: D5% in Water 1,000 ML IVC PRN (07:45)
[2019-12-06] MEDS: carvediloL 6.25 MG TABLET PO SCH ×2 (09:13→17:47)
[2019-12-06] MEDS: Furosemide 20 MG/2 ML VIAL IVP SCH ×2 (09:14→20:43)
[2019-12-06] MEDS: Aspirin Enteric Coated 81 MG Tablet PO SCH (09:14)
[2019-12-06] MEDS: Chlorhexidine Rinse 15 ML MOUTHWASH MM SCH ×2 (09:14→20:43)
[2019-12-06] MEDS: predniSONE 10 MG TABLET PO SCH (09:14)
[2019-12-06] MEDS: Pantoprazole 40 MG VIAL IVP SCH (09:14)
[2019-12-06] MEDS ORDERED: *HR* FentaNYL (PF) 100 MCG/2 ML VIAL IVP PRN (11:29)
[2019-12-06] MEDS: Insulin LISPRO 300 UNITS/3 ML VIAL SQ SCH ×2 (12:10→17:55)
[2019-12-06] MEDS ORDERED: Amiodarone Premix 150 MG/100 ML BAG IVPB ONE ×2 (14:57→15:01)
[2019-12-06] MEDS ORDERED: Amiodarone Premix 360 MG/200 ML BAG IVC ONE (15:01)
[2019-12-06] MEDS: *HR* Heparin 5,000 UNIT/ML VIAL SQ SCH (17:47)
[2019-12-06] MEDS ORDERED: Insulin LISPRO 300 UNITS/3 ML VIAL SQ SCH (21:00)
[2019-12-06] MEDS: Norepinephrine 4 MG/254 ML IV.SOLN IVC SCH (21:14)
[2019-12-06] MEDS: 0.9 % Sodium Chloride 1,000 ML IVC SCH (21:14)
[2019-12-06] MEDS: Amiodarone Premix 360 MG/200 ML BAG IVC SCH (22:29)
[2019-12-07] MEDS: *HR* OxyCODONE/APAP 5/325 TABLET PO PRN ×4 (03:57→23:05)
[2019-12-07 04:27] LABS: Basophils % 0.2 %; Eosinophils # 0.2 K/mcL (0.0-0.6); Eosinophils % 1.6 %; Hematocrit 25.5 % (37.5-50.1); Hemoglobin 8.2 g/dL (12.9-16.9); Immature Granulocytes % 0.3 % (0-4); Lymphocytes # 1.6 K/mcL (0.6-4.6); Lymphocytes % 13.7 %; Mean Corpuscular HGB Conc 32.2 g/dL (31.6-35.5); Mean Corpuscular Hemoglobin 30.9 pg (28.0-33.3); Mean Corpuscular Volume 96.2 fL (83.0-100.0); Mean Platelet Volume 11.4 fL (9.4-12.4); Monocytes # 1.2 K/mcL (0.0-1.3); Monocytes % 10.4 %; Neutrophils # 8.6 K/mcL (1.6-8.9); Platelet Count 113 K/mcL (140-400); Red Blood Count 2.65 M/mcL (4.19-5.50); Red Cell Distribution Width 14.9 % (11.5-14.5); Segmented Neutrophils % 73.8 %; White Blood Count 11.6 K/mcL (4.3-11.1)
[2019-12-07] MEDS: niCARdipine 20 MG/200 ML MLS IVC SCH ×4 (04:33→20:34)
[2019-12-07 04:46] LABS: Calcium 8.7 mg/dL (8.6-10.3); Potassium 5.3 mEq/L (3.5-5.1)
[2019-12-07] MEDS: 0.9 % Sodium Chloride 1,000 ML IVC SCH (05:52)
[2019-12-07] MEDS: *HR* Heparin 5,000 UNIT/ML VIAL SQ SCH ×2 (06:17→17:00)
[2019-12-07] MEDS: Metoclopramide 10 MG/2 ML VIAL IVP SCH ×4 (06:17→23:05)
[2019-12-07] MEDS: carvediloL 6.25 MG TABLET PO SCH ×2 (08:46→16:59)
[2019-12-07] MEDS: Aspirin Enteric Coated 81 MG Tablet PO SCH (08:46)
[2019-12-07] MEDS: Furosemide 20 MG/2 ML VIAL IVP SCH (08:46)
[2019-12-07] MEDS: Chlorhexidine Rinse 15 ML MOUTHWASH MM SCH ×2 (08:46→20:26)
[2019-12-07] MEDS: Amiodarone Premix 360 MG/200 ML BAG IVC SCH ×2 (10:30→23:20)
[2019-12-07] MEDS: Insulin LISPRO 300 UNITS/3 ML VIAL SQ SCH ×3 (11:54→19:46)
[2019-12-07 15:18] LABS: Uric Acid 10.5 mg/dL (2.3-7.6)
[2019-12-07] MEDS ORDERED: Furosemide 40 MG/4 ML VIAL IVP ONE (15:31)
[2019-12-07 17:35] LABS: Protein/Creatinine Ratio,Urine 1.13 mg/mg (0.00-0.20)
[2019-12-07 17:39] LABS: Bilirubin,Urine Negative (Negative); Blood,Urine Negative (Negative); Clarity,Urine Clear (Clear); Color,Urine Light-Yellow (Yellow); Glucose,Urine (UA) 300 mg/dL (Normal); Ketones,Urine Negative (Negative); Leukocyte Esterase,Urine Negative (Negative); Mucus,Urine Few per lpf (None-Few); Nitrite,Urine Negative (Negative); PH,Urine 5.5 pH Units (5.0-8.0); Protein,Urine 100 mg/dL (Neg-Trace); Specific Gravity,Urine 1.023 (1.010-1.025); Squamous Epithelial Cell,Urine Few per hpf (None-Few); Urobilinogen,Urine Normal (Normal)
[2019-12-07] MEDS: Norepinephrine 4 MG/254 ML IV.SOLN IVC SCH (19:46)
[2019-12-07] MEDS ORDERED: Insulin LISPRO 300 UNITS/3 ML VIAL SQ SCH (21:00)
[2019-12-08] MEDS: niCARdipine 20 MG/200 ML MLS IVC SCH ×2 (03:14→07:55)
[2019-12-08] MEDS: 0.9 % Sodium Chloride 1,000 ML IVC SCH (03:14)
[2019-12-08] MEDS: *HR* Heparin 5,000 UNIT/ML VIAL SQ SCH ×2 (06:32→17:12)
[2019-12-08] MEDS: Metoclopramide 10 MG/2 ML VIAL IVP SCH (06:33)
[2019-12-08] MEDS: *HR* OxyCODONE/APAP 5/325 TABLET PO PRN ×3 (06:34→19:36)
[2019-12-08 06:59] LABS: Basophils % 0.1 %; Eosinophils # 0.4 K/mcL (0.0-0.6); Eosinophils % 3.4 %; Hematocrit 25.2 % (37.5-50.1); Hemoglobin 8.1 g/dL (12.9-16.9); Immature Granulocytes % 0.4 % (0-4); Lymphocytes # 1.7 K/mcL (0.6-4.6); Lymphocytes % 15.9 %; Mean Corpuscular HGB Conc 32.1 g/dL (31.6-35.5); Mean Corpuscular Volume 93.3 fL (83.0-100.0); Mean Platelet Volume 11.4 fL (9.4-12.4); Monocytes % 9.5 %; Neutrophils # 7.7 K/mcL (1.6-8.9); Platelet Count 139 K/mcL (140-400); Red Cell Distribution Width 14.6 % (11.5-14.5); Segmented Neutrophils % 70.7 %; White Blood Count 10.9 K/mcL (4.3-11.1)
[2019-12-08 07:17] LABS: Calcium 8.7 mg/dL (8.6-10.3); Potassium 4.7 mEq/L (3.5-5.1)
[2019-12-08] MEDS: Aspirin Enteric Coated 81 MG Tablet PO SCH (07:57)
[2019-12-08] MEDS: carvediloL 6.25 MG TABLET PO SCH ×2 (07:57→17:12)
[2019-12-08] MEDS: Insulin LISPRO 300 UNITS/3 ML VIAL SQ SCH ×4 (07:58→19:36)
[2019-12-08] MEDS: Chlorhexidine Rinse 15 ML MOUTHWASH MM SCH ×2 (07:58→19:35)
[2019-12-08] MEDS ORDERED: Albumin 25% 25gram/100mL 25 GM/100 ML IV.SOLN IVPB ONE (09:00)
[2019-12-08] MEDS ORDERED: *HR* Amiodarone 200 MG TABLET PO SCH (09:00)
[2019-12-08] MEDS ORDERED: Saline Nasal Spray 44 ML BOTTLE NS PRN (09:27)
[2019-12-08] MEDS ORDERED: Naloxone 0.4 MG/ML INJ IVP PRN (09:27)
[2019-12-08] MEDS ORDERED: Nitroglycerin 0.4 MG TAB.SUBL SL PRN (09:27)
[2019-12-08] MEDS ORDERED: Acetaminophen 325 MG TABLET PO PRN (09:27)
[2019-12-08] MEDS ORDERED: D5% in Water 1,000 ML IVC PRN (09:27)
[2019-12-08] MEDS ORDERED: Ondansetron 4 MG/2 ML VIAL IVP PRN (09:27)
[2019-12-08] MEDS ORDERED: Dextrose Gel 15 GM/37.5 ML TUBE PO PRN ×2 (09:27)
[2019-12-08] MEDS ORDERED: *HR* Dextrose 50 % in Water (Vial) 50 ML VIAL IVP PRN (09:27)
[2019-12-08] MEDS ORDERED: Furosemide 40 MG/4 ML VIAL IVP ONE (09:30)
[2019-12-08] MEDS ORDERED: Metoclopramide 10 MG/2 ML VIAL IVP SCH (12:00)
[2019-12-09] MEDS: *HR* OxyCODONE/APAP 5/325 TABLET PO PRN ×2 (03:02→14:20)
[2019-12-09] MEDS: *HR* Heparin 5,000 UNIT/ML VIAL SQ SCH ×2 (05:33→16:01)
[2019-12-09] MEDS: Chlorhexidine Rinse 15 ML MOUTHWASH MM SCH ×2 (08:32→21:21)
[2019-12-09] MEDS: carvediloL 6.25 MG TABLET PO SCH ×2 (08:34→16:01)
[2019-12-09] MEDS: Insulin LISPRO 300 UNITS/3 ML VIAL SQ SCH ×6 (08:34→23:37)
[2019-12-09] MEDS: Insulin DETEMIR 100 UNIT/ML X5UNITS SQ SCH ×2 (08:35→21:37)
[2019-12-09] MEDS ORDERED: Aspirin Enteric Coated 81 MG Tablet PO SCH (09:00)
[2019-12-09] MEDS ORDERED: *HR* Amiodarone 200 MG TABLET PO SCH (09:00)
[2019-12-09 14:26] LABS: Calcium 8.3 mg/dL (8.6-10.3); Potassium 4.9 mEq/L (3.5-5.1)
[2019-12-09] MEDS ORDERED: *HR* Midazolam HCl 2 MG/2 ML VIAL IVP ONE (17:36)
[2019-12-09] MEDS ORDERED: *HR* Midazolam HCl 5 MG/5 ML VIAL IVP ONE ×2 (17:36→19:45)
[2019-12-09] MEDS ORDERED: Perflutren Lipid Microsphere 1.3 ML in 0.9 % Sodium Chloride 8.7 ML IVP PRN (19:14)
[2019-12-09] MEDS ORDERED: *HR* Midazolam HCl 2 MG/2 ML VIAL IV ONE (19:16)
[2019-12-09] MEDS ORDERED: Artificial Tears SOLN 15 ML BOTTLE BOTH EYES PRN (19:16)
[2019-12-09] MEDS ORDERED: *HR* FentaNYL (PF) 100 MCG/2 ML VIAL IVP ONE (19:22)
[2019-12-09] MEDS ORDERED: *HR* Midazolam HCl 2 MG/2 ML VIAL IVP STA (19:43)
[2019-12-09 19:55] LABS: ABG Base Excess -4 mEq/L (-2 to 3); ABG HCO3 21 mEq/L (21-27); ABG Oxygen Saturation 91 % (95-98); ABG PCO2 35 mmHg (35-45); ABG PH 7.38 pH Units (7.32-7.45); ABG PO2 62 mmHg (85-104); ABG TCO2 22 mEq/L (20-26); Blood Gas VT 500 cc
[2019-12-09 19:58] LABS: Basophils % 0.2 %; Eosinophils % 3.7 %; Hemoglobin 8.7 g/dL (12.9-16.9); Immature Granulocytes % 1.1 % (0-4); Lymphocytes % 40.2 %; Mean Corpuscular HGB Conc 31.1 g/dL (31.6-35.5); Mean Corpuscular Volume 96.6 fL (83.0-100.0); Mean Platelet Volume 11.6 fL (9.4-12.4); Monocytes # 1.1 K/mcL (0.0-1.3); Monocytes % 6.5 %; Neutrophils # 8.4 K/mcL (1.6-8.9); Nucleated Red Blood Cells 0.2 /100 WBC (0); Platelet Count 228 K/mcL (140-400); Red Cell Distribution Width 14.6 % (11.5-14.5); Segmented Neutrophils % 48.3 %; White Blood Count 17.4 K/mcL (4.3-11.1)
[2019-12-09 20:00] LABS: Eosinophils # 0.6 K/mcL (0.0-0.6)
[2019-12-09] MEDS ORDERED: Vancomycin 1,250 MG/262.5 ML IV.SOLN IVPB SCH (20:00)
[2019-12-09 20:03] LABS: Prothrombin Time 11.7 Seconds (9.4-12.1)
[2019-12-09 20:06] LABS: Activated Partial Thrombo Time 33.4 Seconds (26.0-36.0)
[2019-12-09 20:07] LABS: Albumin 3.3 g/dL (3.5-5.7); Albumin/Globulin Ratio 1.4 (1.1-2.2); Bilirubin,Direct 0.1 mg/dL (0.0-0.2); Bilirubin,Indirect 0.4 mg/dL (0.0-1.0); Bilirubin,Total 0.5 mg/dL (0.3-1.0); Globulin 2.3 g/dL (2.4-3.5); Magnesium 2.4 mg/dL (1.6-2.6); Phosphorous 4.7 mg/dL (2.7-4.5); Total Protein 5.6 g/dL (6.4-8.9)
[2019-12-09] MEDS: FentaNYL (PF) 1,000 MCG/100 ML IV.SOLN IVC SCH ×2 (20:09→21:29)
[2019-12-09 20:13] LABS: Troponin I 0.39 ng/mL (< 0.04)
[2019-12-09 20:18] LABS: Reactive Lymphocytes Present (Not Present)
[2019-12-09] MEDS ORDERED: 0.9 % Sodium Chloride 1,000 ML ONE ×2 (20:20→21:42)
[2019-12-09] MEDS: Norepinephrine 4 MG/254 ML IV.SOLN IVC SCH (20:51)
[2019-12-09] MEDS ORDERED: Chlorhexidine Rinse 15 ML MOUTHWASH MM SCH (21:00)
[2019-12-09] MEDS: Piperacillin/Tazobactam 3.375 GM in 0.9 % Sodium Chloride Mini Bag 100 ML IVPB SCH (21:20)
[2019-12-09] MEDS: Pantoprazole 40 MG VIAL IVP SCH (21:37)
[2019-12-09] MEDS: Artificial Tears SOLN 15 ML BOTTLE BOTH EYES SCH ×2 (21:37→23:37)
[2019-12-09 22:58] LABS: ABG Base Excess -2 mEq/L (-2 to 3); ABG HCO3 24 mEq/L (21-27); ABG Oxygen Saturation 91 % (95-98); ABG PCO2 46 mmHg (35-45); ABG PH 7.33 pH Units (7.32-7.45); ABG PO2 67 mmHg (85-104); ABG TCO2 26 mEq/L (20-26); Blood Gas VT 500 cc
[2019-12-09] MEDS: Midazolam HCl 50 MG/100 ML IV.SOLN IVC SCH (23:08)
[2019-12-10] MEDS: Amiodarone Premix 360 MG/200 ML BAG IVC SCH ×2 (00:42→14:19)
[2019-12-10] MEDS: Artificial Tears SOLN 15 ML BOTTLE BOTH EYES SCH ×5 (03:07→19:28)
[2019-12-10 03:15] LABS: VBG Ionized Calcium 1.17 mmol/L (1.15-1.35)
[2019-12-10 03:15] LABS: Hematocrit 27.5 % (37.5-50.1); Hemoglobin 8.9 g/dL (12.9-16.9); Mean Corpuscular HGB Conc 32.4 g/dL (31.6-35.5); Mean Corpuscular Hemoglobin 30.9 pg (28.0-33.3); Mean Corpuscular Volume 95.5 fL (83.0-100.0); Mean Platelet Volume 10.5 fL (9.4-12.4); Platelet Count 253 K/mcL (140-400); Red Blood Count 2.88 M/mcL (4.19-5.50); Red Cell Distribution Width 14.3 % (11.5-14.5); White Blood Count 22.1 K/mcL (4.3-11.1)
[2019-12-10 03:35] LABS: Calcium 8.6 mg/dL (8.6-10.3); Magnesium 2.8 mg/dL (1.6-2.6); Potassium 5.5 mEq/L (3.5-5.1)
[2019-12-10 03:36] LABS: Albumin 3.6 g/dL (3.5-5.7); Calcium 8.6 mg/dL (8.6-10.3); Phosphorous 5.7 mg/dL (2.7-4.5); Potassium 5.5 mEq/L (3.5-5.1)
[2019-12-10] MEDS ORDERED: Furosemide 20 MG/2 ML VIAL IVP ONE (04:09)
[2019-12-10 04:21] LABS: ABG Base Excess -1 mEq/L (-2 to 3); ABG HCO3 25 mEq/L (21-27); ABG Oxygen Saturation 100 % (95-98); ABG PCO2 44 mmHg (35-45); ABG PH 7.36 pH Units (7.32-7.45); ABG PO2 201 mmHg (85-104); ABG TCO2 26 mEq/L (20-26); Blood Gas VT 500 cc
[2019-12-10] MEDS: Furosemide 40 MG/4 ML VIAL IVP SCH (05:22)
[2019-12-10] MEDS: *HR* Heparin 5,000 UNIT/ML VIAL SQ SCH ×2 (05:22→17:04)
[2019-12-10] MEDS: Insulin LISPRO 300 UNITS/3 ML VIAL SQ SCH ×4 (05:23→19:29)
[2019-12-10] MEDS: Piperacillin/Tazobactam 3.375 GM in 0.9 % Sodium Chloride Mini Bag 100 ML IVPB SCH ×2 (05:25→17:04)
[2019-12-10] MEDS: FentaNYL (PF) 1,000 MCG/100 ML IV.SOLN IVC SCH ×2 (07:00→16:43)
[2019-12-10 07:54] LABS: ABG Base Excess -4 mEq/L (-2 to 3); ABG Chloride 107 mEq/L (98-107); ABG Glucose 164 mg/dL (60-95); ABG HCO3 21 mEq/L (21-27); ABG Ionized Calcium 1.11 mmol/L (1.15-1.35); ABG Oxygen Saturation 100 % (95-98); ABG PCO2 37 mmHg (35-45); ABG PH 7.36 pH Units (7.32-7.45); ABG PO2 329 mmHg (85-104); ABG TCO2 22 mEq/L (20-26)
[2019-12-10 07:54] LABS: ABG Base Excess -1 mEq/L (-2 to 3); ABG Chloride 110 mEq/L (98-107); ABG Glucose 150 mg/dL (60-95); ABG HCO3 24 mEq/L (21-27); ABG Oxygen Saturation 100 % (95-98); ABG PCO2 40 mmHg (35-45); ABG PH 7.38 pH Units (7.32-7.45); ABG PO2 266 mmHg (85-104); ABG TCO2 25 mEq/L (20-26)
[2019-12-10 07:54] LABS: ABG Base Excess -2 mEq/L (-2 to 3); ABG Chloride 106 mEq/L (98-107); ABG Glucose 263 mg/dL (60-95); ABG HCO3 24 mEq/L (21-27); ABG Ionized Calcium 1.14 mmol/L (1.15-1.35); ABG Oxygen Saturation 100 % (95-98); ABG PCO2 47 mmHg (35-45); ABG PH 7.32 pH Units (7.32-7.45); ABG PO2 489 mmHg (85-104); ABG TCO2 26 mEq/L (20-26)
[2019-12-10 07:54] LABS: ABG Base Excess -4 mEq/L (-2 to 3); ABG Chloride 110 mEq/L (98-107); ABG Glucose 113 mg/dL (60-95); ABG HCO3 23 mEq/L (21-27); ABG Ionized Calcium 1.32 mmol/L (1.15-1.35); ABG Oxygen Saturation 97 % (95-98); ABG PCO2 49 mmHg (35-45); ABG PH 7.28 pH Units (7.32-7.45); ABG PO2 109 mmHg (85-104); ABG TCO2 25 mEq/L (20-26)
[2019-12-10 07:54] LABS: ABG Base Excess -3 mEq/L (-2 to 3); ABG Chloride 106 mEq/L (98-107); ABG Glucose 189 mg/dL (60-95); ABG HCO3 24 mEq/L (21-27); ABG Ionized Calcium 1.17 mmol/L (1.15-1.35); ABG Oxygen Saturation 100 % (95-98); ABG PCO2 49 mmHg (35-45); ABG PH 7.29 pH Units (7.32-7.45); ABG PO2 557 mmHg (85-104); ABG TCO2 25 mEq/L (20-26)
[2019-12-10 07:54] LABS: ABG Base Excess -6 mEq/L (-2 to 3); ABG Chloride 113 mEq/L (98-107); ABG Glucose 230 mg/dL (60-95); ABG HCO3 22 mEq/L (21-27); ABG Oxygen Saturation 97 % (95-98); ABG PCO2 50 mmHg (35-45); ABG PH 7.24 pH Units (7.32-7.45); ABG PO2 103 mmHg (85-104); ABG TCO2 23 mEq/L (20-26)
[2019-12-10] MEDS: Aspirin 81 MG TAB.CHEW PO SCH (08:22)
[2019-12-10] MEDS: Chlorhexidine Rinse 15 ML MOUTHWASH MM SCH ×2 (08:22→19:28)
[2019-12-10] MEDS: Pantoprazole 40 MG VIAL IVP SCH (08:23)
[2019-12-10 10:32] LABS: Bilirubin,Urine Negative (Negative); Blood,Urine Negative (Negative); Clarity,Urine Clear (Clear); Color,Urine Light-Yellow (Yellow); Glucose,Urine (UA) Normal (Normal); Ketones,Urine Negative (Negative); Leukocyte Esterase,Urine Negative (Negative); Nitrite,Urine Negative (Negative); PH,Urine 5.5 pH Units (5.0-8.0); Protein,Urine Trace mg/dL (Neg-Trace); Specific Gravity,Urine 1.013 (1.010-1.025); Urobilinogen,Urine Normal (Normal)
[2019-12-10] MEDS ORDERED: SODIUM ZIRCONIUM CYCLOSILICATE 5 GM POWD.PACK PO ONE (10:51)
[2019-12-10] MEDS ORDERED: Aminoglycoside Consult 1 EACH MC ONE (11:40)
[2019-12-10] MEDS: Iron Sucrose Complex 400 MG in 0.9 % Sodium Chloride 250 ML IVPB SCH (11:45)
[2019-12-10] MEDS: Doxycycline 100 MG in 0.9 % Sodium Chloride Mini Bag 100 ML IVPB SCH (17:05)
[2019-12-10] MEDS: Midazolam HCl 50 MG/100 ML IV.SOLN IVC SCH (17:06)
[2019-12-11] MEDS: Artificial Tears SOLN 15 ML BOTTLE BOTH EYES SCH ×7 (00:06→23:50)
[2019-12-11] MEDS: Insulin LISPRO 300 UNITS/3 ML VIAL SQ SCH ×6 (00:06→23:49)
[2019-12-11] MEDS: FentaNYL (PF) 1,000 MCG/100 ML IV.SOLN IVC SCH ×3 (02:10→20:13)
[2019-12-11] MEDS: Amiodarone Premix 360 MG/200 ML BAG IVC SCH ×2 (02:58→16:36)
[2019-12-11] MEDS: Norepinephrine 4 MG/254 ML IV.SOLN IVC SCH ×3 (03:22→08:51)
[2019-12-11 03:31] LABS: Basophils # 0.1 K/mcL (0.0-0.2); Basophils % 0.6 %; Eosinophils # 0.8 K/mcL (0.0-0.6); Eosinophils % 6.2 %; Hematocrit 23.6 % (37.5-50.1); Immature Granulocytes % 0.3 % (0-4); Lymphocytes % 8.5 %; Mean Corpuscular HGB Conc 30.9 g/dL (31.6-35.5); Mean Corpuscular Hemoglobin 29.8 pg (28.0-33.3); Mean Corpuscular Volume 96.3 fL (83.0-100.0); Mean Platelet Volume 9.9 fL (9.4-12.4); Monocytes # 1.2 K/mcL (0.0-1.3); Monocytes % 9.8 %; Neutrophils # 9.2 K/mcL (1.6-8.9); Platelet Count 226 K/mcL (140-400); Red Blood Count 2.45 M/mcL (4.19-5.50); Red Cell Distribution Width 14.5 % (11.5-14.5); Segmented Neutrophils % 74.6 %; White Blood Count 12.3 K/mcL (4.3-11.1)
[2019-12-11 03:32] LABS: Hemoglobin 7.3 g/dL (12.9-16.9)
[2019-12-11 03:49] LABS: Magnesium 2.5 mg/dL (1.6-2.6); Phosphorous 5.9 mg/dL (2.7-4.5); Potassium 4.8 mEq/L (3.5-5.1)
[2019-12-11 04:35] LABS: ABG Base Excess -2 mEq/L (-2 to 3); ABG HCO3 23 mEq/L (21-27); ABG Oxygen Saturation 97 % (95-98); ABG PCO2 42 mmHg (35-45); ABG PH 7.35 pH Units (7.32-7.45); ABG PO2 97 mmHg (85-104); ABG TCO2 24 mEq/L (20-26); Blood Gas Modality AF; Blood Gas VT 500 cc
[2019-12-11] MEDS: Doxycycline 100 MG in 0.9 % Sodium Chloride Mini Bag 100 ML IVPB SCH ×2 (05:17→17:17)
[2019-12-11] MEDS: Piperacillin/Tazobactam 3.375 GM in 0.9 % Sodium Chloride Mini Bag 100 ML IVPB SCH ×3 (05:17→23:50)
[2019-12-11] MEDS: *HR* Heparin 5,000 UNIT/ML VIAL SQ SCH ×2 (05:18→17:18)
[2019-12-11] MEDS: Midazolam HCl 50 MG/100 ML IV.SOLN IVC SCH ×2 (07:14→20:13)
[2019-12-11] MEDS: Pantoprazole 40 MG VIAL IVP SCH (08:34)
[2019-12-11] MEDS: Furosemide 40 MG/4 ML VIAL IVP SCH (08:35)
[2019-12-11] MEDS: Chlorhexidine Rinse 15 ML MOUTHWASH MM SCH ×2 (08:35→20:12)
[2019-12-11] MEDS: Aspirin 81 MG TAB.CHEW PO SCH (08:35)
[2019-12-11] MEDS ORDERED: 0.9 % Sodium Chloride 250 ML ONE (10:33)
[2019-12-11] MEDS: Docusate Oral Soln 100 MG/10 ML UDC GTUBE SCH (20:12)
[2019-12-11 20:16] LABS: Hematocrit 25.1 % (37.5-50.1); Hemoglobin 7.9 g/dL (12.9-16.9); Mean Corpuscular HGB Conc 31.5 g/dL (31.6-35.5); Mean Corpuscular Volume 95.4 fL (83.0-100.0); Platelet Count 222 K/mcL (140-400); Red Blood Count 2.63 M/mcL (4.19-5.50); Red Cell Distribution Width 14.5 % (11.5-14.5); White Blood Count 9.9 K/mcL (4.3-11.1)
[2019-12-12] MEDS: Amiodarone Premix 360 MG/200 ML BAG IVC SCH (03:03)
[2019-12-12] MEDS: FentaNYL (PF) 1,000 MCG/100 ML IV.SOLN IVC SCH ×2 (03:48→16:55)
[2019-12-12] MEDS: Artificial Tears SOLN 15 ML BOTTLE BOTH EYES SCH ×5 (04:23→21:20)
[2019-12-12 04:44] LABS: ABG Base Excess -5 mEq/L (-2 to 3); ABG HCO3 21 mEq/L (21-27); ABG Oxygen Saturation 92 % (95-98); ABG PCO2 36 mmHg (35-45); ABG PH 7.36 pH Units (7.32-7.45); ABG PO2 66 mmHg (85-104); ABG TCO2 22 mEq/L (20-26); Blood Gas Modality ASSIST CONTROL; Blood Gas VT 500 cc
[2019-12-12 05:15] LABS: Basophils % 0.4 %; Eosinophils # 0.7 K/mcL (0.0-0.6); Eosinophils % 6.8 %; Hematocrit 25.4 % (37.5-50.1); Hemoglobin 7.8 g/dL (12.9-16.9); Immature Granulocytes % 0.4 % (0-4); Lymphocytes # 0.7 K/mcL (0.6-4.6); Lymphocytes % 6.7 %; Mean Corpuscular HGB Conc 30.7 g/dL (31.6-35.5); Mean Corpuscular Hemoglobin 29.5 pg (28.0-33.3); Mean Corpuscular Volume 96.2 fL (83.0-100.0); Mean Platelet Volume 10.4 fL (9.4-12.4); Monocytes # 0.9 K/mcL (0.0-1.3); Monocytes % 8.6 %; Neutrophils # 7.9 K/mcL (1.6-8.9); Platelet Count 242 K/mcL (140-400); Red Blood Count 2.64 M/mcL (4.19-5.50); Red Cell Distribution Width 14.5 % (11.5-14.5); Segmented Neutrophils % 77.1 %; White Blood Count 10.2 K/mcL (4.3-11.1)
[2019-12-12 05:27] LABS: Calcium 8.3 mg/dL (8.6-10.3); Magnesium 2.4 mg/dL (1.6-2.6); Phosphorous 5.5 mg/dL (2.7-4.5); Potassium 4.4 mEq/L (3.5-5.1)
[2019-12-12] MEDS: *HR* Heparin 5,000 UNIT/ML VIAL SQ SCH ×2 (06:06→17:18)
[2019-12-12] MEDS: Doxycycline 100 MG in 0.9 % Sodium Chloride Mini Bag 100 ML IVPB SCH ×2 (06:06→18:01)
[2019-12-12] MEDS: Insulin LISPRO 300 UNITS/3 ML VIAL SQ SCH ×4 (06:07→21:22)
[2019-12-12] MEDS: Piperacillin/Tazobactam 3.375 GM in 0.9 % Sodium Chloride Mini Bag 100 ML IVPB SCH ×2 (07:44→16:09)
[2019-12-12] MEDS: Midazolam HCl 50 MG/100 ML IV.SOLN IVC SCH (09:00)
[2019-12-12] MEDS: Aspirin 81 MG TAB.CHEW PO SCH (09:21)
[2019-12-12] MEDS: Chlorhexidine Rinse 15 ML MOUTHWASH MM SCH ×2 (09:21→21:20)
[2019-12-12] MEDS: Furosemide 40 MG/4 ML VIAL IVP SCH (09:21)
[2019-12-12] MEDS: Docusate Oral Soln 100 MG/10 ML UDC GTUBE SCH ×2 (09:21→21:20)
[2019-12-12] MEDS: Pantoprazole 40 MG VIAL IVP SCH (09:21)
[2019-12-12] MEDS ORDERED: 0.9 % Sodium Chloride 250 ML ONE (09:33)
[2019-12-12] MEDS: *HR* Amiodarone 200 MG TABLET PO SCH (10:39)
[2019-12-12] MEDS: Iron Sucrose Complex 400 MG in 0.9 % Sodium Chloride 250 ML IVPB SCH (12:31)
[2019-12-13] MEDS: Piperacillin/Tazobactam 3.375 GM in 0.9 % Sodium Chloride Mini Bag 100 ML IVPB SCH ×4 (01:11→23:14)
[2019-12-13] MEDS: Artificial Tears SOLN 15 ML BOTTLE BOTH EYES SCH ×7 (01:11→23:15)
[2019-12-13] MEDS: Insulin LISPRO 300 UNITS/3 ML VIAL SQ SCH ×6 (01:12→23:29)
[2019-12-13] MEDS: Midazolam HCl 50 MG/100 ML IV.SOLN IVC SCH ×2 (03:16→20:27)
[2019-12-13] MEDS: FentaNYL (PF) 1,000 MCG/100 ML IV.SOLN IVC SCH ×2 (03:16→17:34)
[2019-12-13 03:17] LABS: Basophils % 0.4 %; Eosinophils # 0.5 K/mcL (0.0-0.6); Eosinophils % 5.7 %; Hematocrit 26.5 % (37.5-50.1); Hemoglobin 8.5 g/dL (12.9-16.9); Immature Granulocytes % 0.2 % (0-4); Lymphocytes # 0.8 K/mcL (0.6-4.6); Lymphocytes % 9.8 %; Mean Corpuscular HGB Conc 32.1 g/dL (31.6-35.5); Mean Corpuscular Hemoglobin 30.9 pg (28.0-33.3); Mean Corpuscular Volume 96.4 fL (83.0-100.0); Mean Platelet Volume 10.1 fL (9.4-12.4); Monocytes # 0.8 K/mcL (0.0-1.3); Monocytes % 9.4 %; Neutrophils # 6.3 K/mcL (1.6-8.9); Platelet Count 236 K/mcL (140-400); Red Blood Count 2.75 M/mcL (4.19-5.50); Red Cell Distribution Width 14.6 % (11.5-14.5); Segmented Neutrophils % 74.5 %; White Blood Count 8.4 K/mcL (4.3-11.1)
[2019-12-13 03:37] LABS: Calcium 8.6 mg/dL (8.6-10.3); Magnesium 2.6 mg/dL (1.6-2.6); Phosphorous 4.9 mg/dL (2.7-4.5); Potassium 3.9 mEq/L (3.5-5.1)
[2019-12-13 04:26] LABS: ABG Base Excess -3 mEq/L (-2 to 3); ABG HCO3 22 mEq/L (21-27); ABG Oxygen Saturation 93 % (95-98); ABG PCO2 37 mmHg (35-45); ABG PH 7.38 pH Units (7.32-7.45); ABG PO2 68 mmHg (85-104); ABG TCO2 23 mEq/L (20-26); Blood Gas Modality ASSIST CONTROL; Blood Gas VT 500 cc
[2019-12-13] MEDS: Doxycycline 100 MG in 0.9 % Sodium Chloride Mini Bag 100 ML IVPB SCH ×2 (05:56→17:33)
[2019-12-13] MEDS: *HR* Heparin 5,000 UNIT/ML VIAL SQ SCH ×2 (05:56→17:34)
[2019-12-13] MEDS: Pantoprazole 40 MG VIAL IVP SCH (10:06)
[2019-12-13] MEDS: Docusate Oral Soln 100 MG/10 ML UDC GTUBE SCH ×2 (10:06→20:27)
[2019-12-13] MEDS: Aspirin 81 MG TAB.CHEW PO SCH (10:06)
[2019-12-13] MEDS: *HR* Amiodarone 200 MG TABLET PO SCH (10:06)
[2019-12-13] MEDS: Chlorhexidine Rinse 15 ML MOUTHWASH MM SCH ×2 (10:07→20:27)
[2019-12-13 11:29] LABS: Sodium, Urine 13.9 mEq/L
[2019-12-13 11:36] LABS: Amorphous Sediment,Urine Few per hpf (None-Few); Bacteria,Urine Few per hpf (None-Few); Bilirubin,Urine Negative (Negative); Blood,Urine Negative (Negative); Clarity,Urine Turbid (Clear); Color,Urine Yellow (Yellow); Glucose,Urine (UA) Normal (Normal); Ketones,Urine Negative (Negative); Leukocyte Esterase,Urine Negative (Negative); Nitrite,Urine Negative (Negative); PH,Urine 5.5 pH Units (5.0-8.0); Protein,Urine 50 mg/dL (Neg-Trace); RBC,Urine 0-3 per hpf (0-3); Specific Gravity,Urine 1.026 (1.010-1.025); Urobilinogen,Urine Normal (Normal)
[2019-12-13] MEDS ORDERED: 0.9 % Sodium Chloride 1,000 ML ONE (14:22)
[2019-12-13] MEDS: Nystatin SUSP 5 ML UD.LIQ PO SCH ×3 (15:48→20:28)
[2019-12-13] MEDS: Albumin 25% 25gram/100mL 25 GM/100 ML IV.SOLN IVPB SCH ×2 (15:49→23:14)
[2019-12-13] MEDS: Norepinephrine 4 MG/254 ML IV.SOLN IVC SCH (20:28)
[2019-12-14] MEDS: Artificial Tears SOLN 15 ML BOTTLE BOTH EYES SCH ×6 (03:11→23:51)
[2019-12-14 03:58] LABS: Basophils % 0.3 %; Eosinophils # 0.5 K/mcL (0.0-0.6); Eosinophils % 6.3 %; Hematocrit 24.4 % (37.5-50.1); Hemoglobin 7.7 g/dL (12.9-16.9); Immature Granulocytes % 0.3 % (0-4); Lymphocytes # 0.8 K/mcL (0.6-4.6); Lymphocytes % 11.4 %; Mean Corpuscular HGB Conc 31.6 g/dL (31.6-35.5); Mean Corpuscular Hemoglobin 30.9 pg (28.0-33.3); Mean Platelet Volume 10.1 fL (9.4-12.4); Monocytes # 0.8 K/mcL (0.0-1.3); Monocytes % 10.6 %; Neutrophils # 5.2 K/mcL (1.6-8.9); Platelet Count 226 K/mcL (140-400); Red Blood Count 2.49 M/mcL (4.19-5.50); Red Cell Distribution Width 14.7 % (11.5-14.5); Segmented Neutrophils % 71.1 %; White Blood Count 7.3 K/mcL (4.3-11.1)
[2019-12-14 04:22] LABS: Calcium 8.6 mg/dL (8.6-10.3); Potassium 4.3 mEq/L (3.5-5.1)
[2019-12-14 04:28] LABS: ABG Base Excess -3 mEq/L (-2 to 3); ABG HCO3 22 mEq/L (21-27); ABG Oxygen Saturation 95 % (95-98); ABG PCO2 36 mmHg (35-45); ABG PH 7.39 pH Units (7.32-7.45); ABG PO2 73 mmHg (85-104); ABG TCO2 23 mEq/L (20-26); Blood Gas Modality AF; Blood Gas VT 500 cc
[2019-12-14] MEDS: Doxycycline 100 MG in 0.9 % Sodium Chloride Mini Bag 100 ML IVPB SCH (05:04)
[2019-12-14] MEDS: *HR* Heparin 5,000 UNIT/ML VIAL SQ SCH ×2 (05:04→17:49)
[2019-12-14] MEDS: Insulin LISPRO 300 UNITS/3 ML VIAL SQ SCH ×5 (05:05→23:52)
[2019-12-14] MEDS: Aspirin 81 MG TAB.CHEW PO SCH (08:46)
[2019-12-14] MEDS: Piperacillin/Tazobactam 3.375 GM in 0.9 % Sodium Chloride Mini Bag 100 ML IVPB SCH ×2 (08:46→16:13)
[2019-12-14] MEDS: Pantoprazole 40 MG VIAL IVP SCH (08:46)
[2019-12-14] MEDS: *HR* Amiodarone 200 MG TABLET PO SCH (08:46)
[2019-12-14] MEDS: Docusate Oral Soln 100 MG/10 ML UDC GTUBE SCH ×2 (08:46→19:50)
[2019-12-14] MEDS: Nystatin SUSP 5 ML UD.LIQ PO SCH ×4 (08:46→19:51)
[2019-12-14] MEDS: Chlorhexidine Rinse 15 ML MOUTHWASH MM SCH ×2 (08:46→19:51)
[2019-12-14] MEDS: Albumin 25% 25gram/100mL 25 GM/100 ML IV.SOLN IVPB SCH (08:47)
[2019-12-14] MEDS ORDERED: 0.9 % Sodium Chloride 250 ML ONE (09:16)
[2019-12-14] MEDS ORDERED: 0.9 % Sodium Chloride 250 ML IVC PRN (11:23)
[2019-12-14] MEDS ORDERED: 0.9 % Sodium Chloride 1,000 ML PRIME SCH (11:30)
[2019-12-14] MEDS: FentaNYL (PF) 1,000 MCG/100 ML IV.SOLN IVC SCH ×2 (13:00→22:25)
[2019-12-14] MEDS ORDERED: Heparin 1,000 UNITS/500 mL 500 ML ONE (13:11)
[2019-12-14] MEDS ORDERED: Lidocaine/EPI 1:100k 1% 50 ML VIAL ONE (13:11)
[2019-12-14] MEDS ORDERED: *HR* Heparin 5,000 UNIT/ML VIAL ONE (13:37)
[2019-12-14 16:01] LABS: Hepatitis B Surface Antibody < 3.10 mIU/mL
[2019-12-14 16:11] LABS: Hepatitis B Surface Antigen Nonreactive (Nonreactive)
[2019-12-14] MEDS: Norepinephrine 4 MG/254 ML IV.SOLN IVC SCH (19:47)
[2019-12-14] MEDS: DOXYCYCLINE ORAL SUSPENSION 100 MG/10 ML UDC PO SCH (20:48)
[2019-12-14] MEDS: Midazolam HCl 50 MG/100 ML IV.SOLN IVC SCH (21:42)
[2019-12-15 04:37] LABS: Basophils % 0.5 %; Eosinophils # 0.5 K/mcL (0.0-0.6); Eosinophils % 7.8 %; Hematocrit 28.8 % (37.5-50.1); Hemoglobin 9.1 g/dL (12.9-16.9); Immature Granulocytes % 0.3 % (0-4); Lymphocytes % 14.4 %; Mean Corpuscular HGB Conc 31.6 g/dL (31.6-35.5); Mean Corpuscular Hemoglobin 30.1 pg (28.0-33.3); Mean Corpuscular Volume 95.4 fL (83.0-100.0); Mean Platelet Volume 9.7 fL (9.4-12.4); Monocytes # 0.7 K/mcL (0.0-1.3); Monocytes % 10.1 %; Neutrophils # 4.5 K/mcL (1.6-8.9); Platelet Count 224 K/mcL (140-400); Red Blood Count 3.02 M/mcL (4.19-5.50); Red Cell Distribution Width 15.1 % (11.5-14.5); Segmented Neutrophils % 66.9 %; White Blood Count 6.7 K/mcL (4.3-11.1)
[2019-12-15] MEDS: Piperacillin/Tazobactam 3.375 GM in 0.9 % Sodium Chloride Mini Bag 100 ML IVPB SCH ×2 (04:45→18:42)
[2019-12-15] MEDS: Artificial Tears SOLN 15 ML BOTTLE BOTH EYES SCH ×6 (04:45→23:43)
[2019-12-15 04:52] LABS: ABG Base Excess 0 mEq/L (-2 to 3); ABG HCO3 25 mEq/L (21-27); ABG Oxygen Saturation 96 % (95-98); ABG PCO2 42 mmHg (35-45); ABG PH 7.38 pH Units (7.32-7.45); ABG PO2 83 mmHg (85-104); ABG TCO2 26 mEq/L (20-26); Blood Gas VT 500 cc
[2019-12-15 04:55] LABS: Calcium 8.4 mg/dL (8.6-10.3); Potassium 3.8 mEq/L (3.5-5.1)
[2019-12-15] MEDS: *HR* Heparin 5,000 UNIT/ML VIAL SQ SCH ×2 (05:18→18:43)
[2019-12-15] MEDS: Insulin LISPRO 300 UNITS/3 ML VIAL SQ SCH ×5 (05:19→23:44)
[2019-12-15] MEDS ORDERED: 0.9 % Sodium Chloride 250 ML IVC PRN (07:21)
[2019-12-15] MEDS: Pantoprazole 40 MG VIAL IVP SCH (09:05)
[2019-12-15] MEDS: Nystatin SUSP 5 ML UD.LIQ PO SCH ×4 (09:05→20:25)
[2019-12-15] MEDS: Chlorhexidine Rinse 15 ML MOUTHWASH MM SCH ×2 (09:06→20:24)
[2019-12-15] MEDS: *HR* Amiodarone 200 MG TABLET PO SCH (09:06)
[2019-12-15] MEDS: Aspirin 81 MG TAB.CHEW PO SCH (09:06)
[2019-12-15] MEDS: Docusate Oral Soln 100 MG/10 ML UDC GTUBE SCH ×2 (09:06→20:24)
[2019-12-15] MEDS ORDERED: *HR* Heparin 10,000 UNIT/10 ML VIAL IV PRN (10:22)
[2019-12-15] MEDS: DOXYCYCLINE ORAL SUSPENSION 100 MG/10 ML UDC PO SCH ×2 (11:38→20:39)
[2019-12-15] MEDS: FentaNYL (PF) 1,000 MCG/100 ML IV.SOLN IVC SCH ×2 (12:04→20:00)
[2019-12-15] MEDS: PARoxetine 20 MG TABLET PO SCH (18:43)
[2019-12-15] MEDS: Norepinephrine 4 MG/254 ML IV.SOLN IVC SCH (20:25)
[2019-12-16] MEDS: FentaNYL (PF) 1,000 MCG/100 ML IV.SOLN IVC SCH ×3 (01:59→18:07)
[2019-12-16] MEDS: Piperacillin/Tazobactam 3.375 GM in 0.9 % Sodium Chloride Mini Bag 100 ML IVPB SCH ×2 (03:14→15:16)
[2019-12-16] MEDS: Artificial Tears SOLN 15 ML BOTTLE BOTH EYES SCH ×6 (03:14→23:40)
[2019-12-16 03:17] LABS: Basophils % 0.3 %; Eosinophils # 0.7 K/mcL (0.0-0.6); Eosinophils % 7.7 %; Hematocrit 28.4 % (37.5-50.1); Hemoglobin 9.1 g/dL (12.9-16.9); Immature Granulocytes % 0.2 % (0-4); Lymphocytes % 10.4 %; Mean Corpuscular Hemoglobin 31.1 pg (28.0-33.3); Mean Corpuscular Volume 96.9 fL (83.0-100.0); Mean Platelet Volume 9.4 fL (9.4-12.4); Monocytes # 0.9 K/mcL (0.0-1.3); Monocytes % 9.9 %; Neutrophils # 6.5 K/mcL (1.6-8.9); Platelet Count 256 K/mcL (140-400); Red Blood Count 2.93 M/mcL (4.19-5.50); Segmented Neutrophils % 71.5 %; White Blood Count 9.1 K/mcL (4.3-11.1)
[2019-12-16 03:40] LABS: Calcium 8.6 mg/dL (8.6-10.3); Potassium 4.1 mEq/L (3.5-5.1)
[2019-12-16 04:10] LABS: ABG Base Excess 4 mEq/L (-2 to 3); ABG HCO3 29 mEq/L (21-27); ABG Oxygen Saturation 87 % (95-98); ABG PCO2 44 mmHg (35-45); ABG PH 7.42 pH Units (7.32-7.45); ABG PO2 53 mmHg (85-104); ABG TCO2 30 mEq/L (20-26); Blood Gas Modality ASSIST CONTROL; Blood Gas VT 450 cc
[2019-12-16] MEDS: *HR* Heparin 5,000 UNIT/ML VIAL SQ SCH ×2 (05:21→20:46)
[2019-12-16] MEDS: Insulin LISPRO 300 UNITS/3 ML VIAL SQ SCH ×5 (05:22→23:40)
[2019-12-16] MEDS: Pantoprazole 40 MG VIAL IVP SCH (08:02)
[2019-12-16] MEDS: *HR* Amiodarone 200 MG TABLET PO SCH (08:03)
[2019-12-16] MEDS: Aspirin 81 MG TAB.CHEW PO SCH (08:03)
[2019-12-16] MEDS: Chlorhexidine Rinse 15 ML MOUTHWASH MM SCH ×2 (08:03→20:46)
[2019-12-16] MEDS: Nystatin SUSP 5 ML UD.LIQ PO SCH ×4 (08:03→20:46)
[2019-12-16] MEDS: Docusate Oral Soln 100 MG/10 ML UDC GTUBE SCH ×2 (08:03→20:46)
[2019-12-16] MEDS: PARoxetine 20 MG TABLET PO SCH (08:03)
[2019-12-16 09:56] LABS: Source of Body Fluid LLL BAL
[2019-12-16] MEDS: DOXYCYCLINE ORAL SUSPENSION 100 MG/10 ML UDC PO SCH ×2 (10:10→20:46)
[2019-12-16 11:01] LABS: Folate 9.9 ng/mL (3.0-16.0)
[2019-12-16] MEDS: Thiamine (B-1) 100 MG in 0.9 % Sodium Chloride 50 ML IVPB SCH (12:30)
[2019-12-16 12:39] LABS: Appearance of Body Fluid Slightly Hazy (Clear); Volume of Body Fluid 16 mL
[2019-12-16] MEDS: Norepinephrine 4 MG/254 ML IV.SOLN IVC SCH (19:33)
[2019-12-17] MEDS: FentaNYL (PF) 1,000 MCG/100 ML IV.SOLN IVC SCH (01:12)
[2019-12-17] MEDS: Artificial Tears SOLN 15 ML BOTTLE BOTH EYES SCH ×4 (03:44→16:54)
[2019-12-17] MEDS: Piperacillin/Tazobactam 3.375 GM in 0.9 % Sodium Chloride Mini Bag 100 ML IVPB SCH ×2 (03:44→16:53)
[2019-12-17 04:19] LABS: ABG Base Excess 1 mEq/L (-2 to 3); ABG HCO3 28 mEq/L (21-27); ABG Oxygen Saturation 89 % (95-98); ABG PCO2 53 mmHg (35-45); ABG PH 7.33 pH Units (7.32-7.45); ABG PO2 63 mmHg (85-104); ABG TCO2 29 mEq/L (20-26); Blood Gas VT 450 cc
[2019-12-17 04:21] LABS: Basophils % 0.3 %; Eosinophils # 0.9 K/mcL (0.0-0.6); Eosinophils % 10.5 %; Hematocrit 27.9 % (37.5-50.1); Hemoglobin 8.6 g/dL (12.9-16.9); Immature Granulocytes % 0.2 % (0-4); Lymphocytes # 1.2 K/mcL (0.6-4.6); Lymphocytes % 13.5 %; Mean Corpuscular HGB Conc 30.8 g/dL (31.6-35.5); Mean Corpuscular Hemoglobin 30.8 pg (28.0-33.3); Mean Platelet Volume 10.1 fL (9.4-12.4); Monocytes # 0.8 K/mcL (0.0-1.3); Monocytes % 9.4 %; Neutrophils # 5.9 K/mcL (1.6-8.9); Platelet Count 272 K/mcL (140-400); Red Blood Count 2.79 M/mcL (4.19-5.50); Red Cell Distribution Width 15.2 % (11.5-14.5); Segmented Neutrophils % 66.1 %; White Blood Count 8.9 K/mcL (4.3-11.1)
[2019-12-17 04:28] LABS: Calcium 8.7 mg/dL (8.6-10.3); Potassium 4.7 mEq/L (3.5-5.1)
[2019-12-17] MEDS: *HR* Heparin 5,000 UNIT/ML VIAL SQ SCH ×3 (05:21→19:44)
[2019-12-17] MEDS: Insulin LISPRO 300 UNITS/3 ML VIAL SQ SCH ×5 (05:22→23:30)
[2019-12-17] MEDS ORDERED: 0.9 % Sodium Chloride 250 ML IVC PRN (07:30)
[2019-12-17] MEDS: *HR* Amiodarone 200 MG TABLET PO SCH (07:49)
[2019-12-17] MEDS: Nystatin SUSP 5 ML UD.LIQ PO SCH ×4 (07:49→19:21)
[2019-12-17] MEDS: Chlorhexidine Rinse 15 ML MOUTHWASH MM SCH (07:49)
[2019-12-17] MEDS: Aspirin 81 MG TAB.CHEW PO SCH (07:49)
[2019-12-17] MEDS: Docusate Oral Soln 100 MG/10 ML UDC GTUBE SCH ×2 (07:49→19:20)
[2019-12-17] MEDS: PARoxetine 20 MG TABLET PO SCH (07:50)
[2019-12-17] MEDS: Pantoprazole 40 MG VIAL IVP SCH (07:52)
[2019-12-17] MEDS: Thiamine (B-1) 100 MG in 0.9 % Sodium Chloride 50 ML IVPB SCH (08:40)
[2019-12-17] MEDS: DOXYCYCLINE ORAL SUSPENSION 100 MG/10 ML UDC PO SCH ×2 (08:44→19:21)
[2019-12-17] MEDS: Morphine Sulfate 2 MG/ML SYRINGE IVP PRN ×2 (14:10→21:20)
[2019-12-17 16:56] LABS: RBC,Pleural Fluid 250000 RBC/mcL
[2019-12-17 17:12] LABS: Glucose,Pleural Fluid 127 mg/dL (No Ref Range); LDH,Pleural Fluid 406 Units/L (No Ref Range); Total Protein,Pleural Fluid < 3.0 g/dL
[2019-12-17 17:37] LABS: Basophils,Pleural Fluid 0 %; Monocytes,Pleural Fluid 0 %
[2019-12-17 18:16] LABS: Lactate Dehydrogenase 190 Units/L (140-271); Total Protein 6.2 g/dL (6.4-8.9)
[2019-12-17] MEDS: Norepinephrine 4 MG/254 ML IV.SOLN IVC SCH (19:11)
[2019-12-17] MEDS: *HR* OxyCODONE/APAP 5/325 TABLET PO PRN (19:44)
[2019-12-17 19:48] LABS: Appearance of Pleural Fl Bloody (Clear)
[2019-12-18] MEDS: *HR* OxyCODONE/APAP 5/325 TABLET PO PRN (01:19)
[2019-12-18] MEDS: Piperacillin/Tazobactam 3.375 GM in 0.9 % Sodium Chloride Mini Bag 100 ML IVPB SCH (03:29)
[2019-12-18 04:04] LABS: Basophils % 0.5 %; Eosinophils % 11.3 %; Hematocrit 28.6 % (37.5-50.1); Immature Granulocytes % 0.3 % (0-4); Lymphocytes # 1.3 K/mcL (0.6-4.6); Lymphocytes % 14.2 %; Mean Corpuscular HGB Conc 31.5 g/dL (31.6-35.5); Mean Corpuscular Hemoglobin 30.5 pg (28.0-33.3); Mean Corpuscular Volume 96.9 fL (83.0-100.0); Mean Platelet Volume 10.1 fL (9.4-12.4); Monocytes # 0.8 K/mcL (0.0-1.3); Monocytes % 8.8 %; Neutrophils # 5.7 K/mcL (1.6-8.9); Platelet Count 349 K/mcL (140-400); Red Blood Count 2.95 M/mcL (4.19-5.50); Red Cell Distribution Width 14.4 % (11.5-14.5); Segmented Neutrophils % 64.9 %; White Blood Count 8.8 K/mcL (4.3-11.1)
[2019-12-18 04:17] LABS: Calcium 8.9 mg/dL (8.6-10.3); Potassium 3.7 mEq/L (3.5-5.1)
[2019-12-18] MEDS: Insulin LISPRO 300 UNITS/3 ML VIAL SQ SCH ×4 (04:55→23:26)
[2019-12-18] MEDS: *HR* Heparin 5,000 UNIT/ML VIAL SQ SCH ×3 (05:09→20:33)
[2019-12-18] MEDS: Morphine Sulfate 2 MG/ML SYRINGE IVP PRN ×2 (05:10→23:26)
[2019-12-18] MEDS ORDERED: Nitroglycerin 0.4 MG TAB.SUBL SL PRN (08:24)
[2019-12-18] MEDS ORDERED: Acetaminophen 325 MG TABLET PO PRN (08:24)
[2019-12-18] MEDS ORDERED: Artificial Tears SOLN 15 ML BOTTLE BOTH EYES PRN (08:24)
[2019-12-18] MEDS ORDERED: 0.9 % Sodium Chloride 250 ML IVC PRN (08:24)
[2019-12-18] MEDS ORDERED: *HR* Dextrose 50 % in Water (Vial) 50 ML VIAL IVP PRN (08:24)
[2019-12-18] MEDS ORDERED: D5% in Water 1,000 ML IVC PRN (08:24)
[2019-12-18] MEDS ORDERED: Saline Nasal Spray 44 ML BOTTLE NS PRN (08:24)
[2019-12-18] MEDS ORDERED: Dextrose Gel 15 GM/37.5 ML TUBE PO PRN ×2 (08:24)
[2019-12-18] MEDS ORDERED: 0.9 % Sodium Chloride 1,000 ML PRIME SCH (08:24)
[2019-12-18] MEDS ORDERED: Naloxone 0.4 MG/ML INJ IVP PRN (08:24)
[2019-12-18] MEDS ORDERED: GlipiZIDE 5 MG TABLET PO SCH (09:00)
[2019-12-18] MEDS: *HR* Amiodarone 200 MG TABLET PO SCH (09:22)
[2019-12-18] MEDS: Aspirin 81 MG TAB.CHEW PO SCH (09:22)
[2019-12-18] MEDS: PARoxetine 20 MG TABLET PO SCH (09:22)
[2019-12-18] MEDS: DOXYCYCLINE ORAL SUSPENSION 100 MG/10 ML UDC PO SCH ×2 (09:23→21:58)
[2019-12-18] MEDS: Nystatin SUSP 5 ML UD.LIQ PO SCH ×4 (09:23→20:33)
[2019-12-18] MEDS: Docusate Oral Soln 100 MG/10 ML UDC PO SCH ×2 (09:23→20:33)
[2019-12-18] MEDS: Pantoprazole 40 MG VIAL IVP SCH (09:26)
[2019-12-18] MEDS: Thiamine (B-1) 100 MG in 0.9 % Sodium Chloride 50 ML IVPB SCH (09:31)
[2019-12-18 15:55] LABS: Influenza A PCR Body Fluid NOT DETECTED; Influenza B PCR Body Fluid NOT DETECTED; RVP Body Fluid Source BAL
[2019-12-18] MEDS ORDERED: Piperacillin/Tazobactam 3.375 GM in 0.9 % Sodium Chloride Mini Bag 100 ML IVPB SCH (16:00)
[2019-12-18] MEDS ORDERED: Insulin LISPRO 300 UNITS/3 ML VIAL SQ SCH (21:00)
[2019-12-18] MEDS: Albumin 25% 25gram/100mL 25 GM/100 ML IV.SOLN IVPB SCH (23:26)
[2019-12-19 04:30] LABS: Basophils % 0.4 %; Eosinophils # 1.1 K/mcL (0.0-0.6); Eosinophils % 14.7 %; Hematocrit 26.9 % (37.5-50.1); Hemoglobin 8.7 g/dL (12.9-16.9); Immature Granulocytes % 0.3 % (0-4); Lymphocytes # 1.4 K/mcL (0.6-4.6); Lymphocytes % 19.2 %; Mean Corpuscular HGB Conc 32.3 g/dL (31.6-35.5); Mean Corpuscular Hemoglobin 30.5 pg (28.0-33.3); Mean Corpuscular Volume 94.4 fL (83.0-100.0); Mean Platelet Volume 9.4 fL (9.4-12.4); Monocytes # 0.9 K/mcL (0.0-1.3); Monocytes % 11.4 %; Platelet Count 388 K/mcL (140-400); Red Blood Count 2.85 M/mcL (4.19-5.50); Red Cell Distribution Width 14.2 % (11.5-14.5); White Blood Count 7.5 K/mcL (4.3-11.1)
[2019-12-19 04:46] LABS: Calcium 9.1 mg/dL (8.6-10.3); Potassium 3.2 mEq/L (3.5-5.1)
[2019-12-19] MEDS: Insulin LISPRO 300 UNITS/3 ML VIAL SQ SCH ×4 (05:13→21:35)
[2019-12-19] MEDS ORDERED: Potassium Chloride Elixir 20 MEQ/15 ML UDC PO ONE (05:18)
[2019-12-19] MEDS: *HR* Heparin 5,000 UNIT/ML VIAL SQ SCH ×3 (05:34→20:00)
[2019-12-19 07:31] LABS: RSV PCR Body Fluid NOT DETECTED
[2019-12-19] MEDS: Aspirin 81 MG TAB.CHEW PO SCH (10:55)
[2019-12-19] MEDS: PARoxetine 20 MG TABLET PO SCH (10:55)
[2019-12-19] MEDS: Pantoprazole 40 MG VIAL IVP SCH (10:56)
[2019-12-19] MEDS: Albumin 25% 25gram/100mL 25 GM/100 ML IV.SOLN IVPB SCH ×2 (10:56→15:51)
[2019-12-19] MEDS: *HR* Amiodarone 200 MG TABLET PO SCH (10:56)
[2019-12-19] MEDS: Nystatin SUSP 5 ML UD.LIQ PO SCH ×4 (12:48→19:57)
[2019-12-19] MEDS: Docusate Oral Soln 100 MG/10 ML UDC PO SCH ×2 (12:48→19:57)
[2019-12-19] MEDS ORDERED: CeFAZolin Syr 2,000MG/20 ML 2,000 MG/20 ML SYRINGE IVPB ONE (13:15)
[2019-12-19] MEDS: Morphine Sulfate 2 MG/ML SYRINGE IVP PRN (13:17)
[2019-12-19] MEDS: Thiamine (B-1) 100 MG TABLET PO SCH (13:27)
[2019-12-19] MEDS: Metoprolol XL (24 HR) Succ 25 MG TAB.ER.24H PO SCH (15:51)
[2019-12-19] MEDS: Thiamine (B-1) 100 MG in 0.9 % Sodium Chloride 50 ML IVPB SCH (16:12)
[2019-12-19] MEDS: *HR* OxyCODONE/APAP 5/325 TABLET PO PRN (19:57)
[2019-12-20] MEDS: Albumin 25% 25gram/100mL 25 GM/100 ML IV.SOLN IVPB SCH ×2 (00:33→08:03)
[2019-12-20 04:33] LABS: Basophils # 0.1 K/mcL (0.0-0.2); Basophils % 0.7 %; Eosinophils # 1.2 K/mcL (0.0-0.6); Eosinophils % 17.8 %; Hematocrit 27.8 % (37.5-50.1); Hemoglobin 8.8 g/dL (12.9-16.9); Immature Granulocytes % 0.3 % (0-4); Lymphocytes # 1.3 K/mcL (0.6-4.6); Lymphocytes % 18.6 %; Mean Corpuscular HGB Conc 31.7 g/dL (31.6-35.5); Mean Corpuscular Hemoglobin 29.4 pg (28.0-33.3); Mean Platelet Volume 9.2 fL (9.4-12.4); Monocytes # 0.9 K/mcL (0.0-1.3); Neutrophils # 3.4 K/mcL (1.6-8.9); Nucleated Red Blood Cells 0.4 /100 WBC (0); Platelet Count 430 K/mcL (140-400); Red Blood Count 2.99 M/mcL (4.19-5.50); Red Cell Distribution Width 14.2 % (11.5-14.5); Segmented Neutrophils % 49.6 %; White Blood Count 6.9 K/mcL (4.3-11.1)
[2019-12-20 04:54] LABS: Calcium 9.3 mg/dL (8.6-10.3); Potassium 3.5 mEq/L (3.5-5.1)
[2019-12-20] MEDS: *HR* Heparin 5,000 UNIT/ML VIAL SQ SCH ×3 (05:36→20:19)
[2019-12-20] MEDS: Insulin LISPRO 300 UNITS/3 ML VIAL SQ SCH ×4 (07:56→20:25)
[2019-12-20] MEDS: Thiamine (B-1) 100 MG TABLET PO SCH (11:07)
[2019-12-20] MEDS: Nystatin SUSP 5 ML UD.LIQ PO SCH ×4 (11:07→20:20)
[2019-12-20] MEDS: Metoprolol XL (24 HR) Succ 25 MG TAB.ER.24H PO SCH (11:07)
[2019-12-20] MEDS: Aspirin 81 MG TAB.CHEW PO SCH (11:07)
[2019-12-20] MEDS: PARoxetine 20 MG TABLET PO SCH (11:07)
[2019-12-20] MEDS: Docusate Oral Soln 100 MG/10 ML UDC PO SCH ×2 (11:07→20:20)
[2019-12-20] MEDS: *HR* Amiodarone 200 MG TABLET PO SCH (11:07)
[2019-12-20] MEDS ORDERED: *HR* FentaNYL (PF) 100 MCG/2 ML VIAL ONE (14:10)
[2019-12-20] MEDS ORDERED: *HR* Midazolam HCl 2 MG/2 ML VIAL ONE ×3 (14:10→15:33)
[2019-12-20] MEDS ORDERED: Water for inj. (sterile) 10 ML ONE (14:11)
[2019-12-20] MEDS ORDERED: 0.9 % Sodium Chloride 500 ML ONE (14:11)
[2019-12-20] MEDS ORDERED: ISOVUE-370 200 ML INFUS..BTL ONE (14:34)
[2019-12-20] MEDS ORDERED: 0.9 % Sodium Chloride 1,000 ML ONE (14:36)
[2019-12-20] MEDS ORDERED: Heparin 1,000 UNITS/500 mL 500 ML ONE (14:55)
[2019-12-20] MEDS: Ringers Solution, Lactated 1,000 ML IVC SCH (17:21)
[2019-12-20] MEDS: *HR* OxyCODONE/APAP 5/325 TABLET PO PRN ×2 (17:35→23:34)
[2019-12-21] MEDS: *HR* OxyCODONE/APAP 5/325 TABLET PO PRN ×4 (03:44→21:36)
[2019-12-21] MEDS: Ringers Solution, Lactated 1,000 ML IVC SCH ×2 (05:36→23:52)
[2019-12-21] MEDS: *HR* Heparin 5,000 UNIT/ML VIAL SQ SCH ×3 (05:37→21:35)
[2019-12-21] MEDS: Morphine Sulfate 2 MG/ML SYRINGE IVP PRN ×2 (05:43→11:12)
[2019-12-21 05:52] LABS: Basophils % 0.7 %; Eosinophils # 0.5 K/mcL (0.0-0.6); Eosinophils % 8.4 %; Hematocrit 27.8 % (37.5-50.1); Hemoglobin 8.8 g/dL (12.9-16.9); Immature Granulocytes % 0.4 % (0-4); Lymphocytes # 0.8 K/mcL (0.6-4.6); Lymphocytes % 14.7 %; Mean Corpuscular HGB Conc 31.7 g/dL (31.6-35.5); Mean Corpuscular Hemoglobin 29.8 pg (28.0-33.3); Mean Corpuscular Volume 94.2 fL (83.0-100.0); Mean Platelet Volume 9.3 fL (9.4-12.4); Monocytes # 0.9 K/mcL (0.0-1.3); Monocytes % 15.4 %; Neutrophils # 3.4 K/mcL (1.6-8.9); Platelet Count 451 K/mcL (140-400); Red Blood Count 2.95 M/mcL (4.19-5.50); Red Cell Distribution Width 14.1 % (11.5-14.5); Segmented Neutrophils % 60.4 %; White Blood Count 5.6 K/mcL (4.3-11.1)
[2019-12-21 06:04] LABS: Calcium 9.3 mg/dL (8.6-10.3); Potassium 3.9 mEq/L (3.5-5.1)
[2019-12-21] MEDS: Metoprolol XL (24 HR) Succ 25 MG TAB.ER.24H PO SCH (07:15)
[2019-12-21] MEDS: *HR* Amiodarone 200 MG TABLET PO SCH (07:16)
[2019-12-21] MEDS: PARoxetine 20 MG TABLET PO SCH (07:16)
[2019-12-21] MEDS: Thiamine (B-1) 100 MG TABLET PO SCH (07:16)
[2019-12-21] MEDS: Nystatin SUSP 5 ML UD.LIQ PO SCH ×4 (07:17→21:36)
[2019-12-21] MEDS: Aspirin 81 MG TAB.CHEW PO SCH (07:17)
[2019-12-21] MEDS: Docusate Oral Soln 100 MG/10 ML UDC PO SCH ×2 (07:17→21:38)
[2019-12-21] MEDS: Insulin LISPRO 300 UNITS/3 ML VIAL SQ SCH ×4 (07:18→21:37)
[2019-12-21] MEDS ORDERED: Metoprolol XL (24 HR) Succ 25 MG TAB.ER.24H PO ONE (09:00)
[2019-12-22] MEDS: Morphine Sulfate 2 MG/ML SYRINGE IVP PRN ×3 (00:02→12:22)
[2019-12-22] MEDS: *HR* Heparin 5,000 UNIT/ML VIAL SQ SCH ×3 (06:07→20:14)
[2019-12-22 08:08] LABS: Calcium 9.3 mg/dL (8.6-10.3); Potassium 3.7 mEq/L (3.5-5.1)
[2019-12-22 08:26] LABS: White Blood Count 5.8 K/mcL (4.3-11.1)
[2019-12-22 08:27] LABS: Basophils % 0.7 %; Eosinophils # 0.8 K/mcL (0.0-0.6); Eosinophils % 14.4 %; Hematocrit 28.7 % (37.5-50.1); Hemoglobin 8.9 g/dL (12.9-16.9); Immature Granulocytes % 0.2 % (0-4); Lymphocytes # 1.5 K/mcL (0.6-4.6); Lymphocytes % 25.3 %; Mean Corpuscular Hemoglobin 29.6 pg (28.0-33.3); Mean Corpuscular Volume 95.3 fL (83.0-100.0); Monocytes # 0.8 K/mcL (0.0-1.3); Monocytes % 13.9 %; Neutrophils # 2.7 K/mcL (1.6-8.9); Platelet Count 487 K/mcL (140-400); Red Blood Count 3.01 M/mcL (4.19-5.50); Red Cell Distribution Width 14.3 % (11.5-14.5); Segmented Neutrophils % 45.5 %
[2019-12-22] MEDS ORDERED: Metoprolol XL (24 HR) Succ 25 MG TAB.ER.24H PO SCH (09:00)
[2019-12-22] MEDS: Docusate Oral Soln 100 MG/10 ML UDC PO SCH ×2 (09:17→20:14)
[2019-12-22] MEDS: *HR* Amiodarone 200 MG TABLET PO SCH (09:17)
[2019-12-22] MEDS: Nystatin SUSP 5 ML UD.LIQ PO SCH ×4 (09:17→20:14)
[2019-12-22] MEDS: PARoxetine 20 MG TABLET PO SCH (09:17)
[2019-12-22] MEDS: Aspirin 81 MG TAB.CHEW PO SCH (09:17)
[2019-12-22] MEDS: Thiamine (B-1) 100 MG TABLET PO SCH (09:17)
[2019-12-22] MEDS: Insulin LISPRO 300 UNITS/3 ML VIAL SQ SCH ×4 (09:17→20:14)
[2019-12-22] MEDS: *HR* OxyCODONE/APAP 5/325 TABLET PO PRN ×3 (09:19→20:13)
[2019-12-22] MEDS: Ringers Solution, Lactated 1,000 ML IVC SCH (12:29)
[2019-12-22] MEDS: carvediloL 6.25 MG TABLET PO SCH (17:39)
[2019-12-23] MEDS: Ringers Solution, Lactated 1,000 ML IVC SCH ×2 (02:10→15:37)
[2019-12-23] MEDS: *HR* OxyCODONE/APAP 5/325 TABLET PO PRN ×4 (02:10→20:17)
[2019-12-23] MEDS: Ondansetron 4 MG/2 ML VIAL IVP PRN ×2 (02:20→20:14)
[2019-12-23] MEDS: *HR* Heparin 5,000 UNIT/ML VIAL SQ SCH ×3 (06:17→20:14)
[2019-12-23] MEDS: Insulin LISPRO 300 UNITS/3 ML VIAL SQ SCH ×4 (07:29→20:15)
[2019-12-23] MEDS: Morphine Sulfate 2 MG/ML SYRINGE IVP PRN ×2 (07:40)
[2019-12-23] MEDS: PARoxetine 20 MG TABLET PO SCH (07:45)
[2019-12-23] MEDS: Aspirin 81 MG TAB.CHEW PO SCH (07:45)
[2019-12-23] MEDS: *HR* Amiodarone 200 MG TABLET PO SCH (07:45)
[2019-12-23] MEDS: Thiamine (B-1) 100 MG TABLET PO SCH (07:45)
[2019-12-23] MEDS: carvediloL 6.25 MG TABLET PO SCH ×3 (07:45→18:30)
[2019-12-23] MEDS: Nystatin SUSP 5 ML UD.LIQ PO SCH ×4 (07:47→20:15)
[2019-12-23] MEDS: Docusate Oral Soln 100 MG/10 ML UDC PO SCH (07:48)
[2019-12-23 12:13] LABS: Calcium 9.4 mg/dL (8.6-10.3); Potassium 4.4 mEq/L (3.5-5.1)
[2019-12-24] MEDS: *HR* OxyCODONE/APAP 5/325 TABLET PO PRN ×5 (01:07→21:33)
[2019-12-24 05:35] LABS: Basophils # 0.1 K/mcL (0.0-0.2); Basophils % 1.1 %; Eosinophils # 0.6 K/mcL (0.0-0.6); Eosinophils % 11.7 %; Hematocrit 30.5 % (37.5-50.1); Hemoglobin 9.3 g/dL (12.9-16.9); Immature Granulocytes % 0.2 % (0-4); Lymphocytes # 1.4 K/mcL (0.6-4.6); Lymphocytes % 25.6 %; Mean Corpuscular HGB Conc 30.5 g/dL (31.6-35.5); Mean Corpuscular Hemoglobin 29.6 pg (28.0-33.3); Mean Corpuscular Volume 97.1 fL (83.0-100.0); Mean Platelet Volume 9.4 fL (9.4-12.4); Monocytes # 0.8 K/mcL (0.0-1.3); Monocytes % 14.8 %; Neutrophils # 2.5 K/mcL (1.6-8.9); Platelet Count 453 K/mcL (140-400); Red Blood Count 3.14 M/mcL (4.19-5.50); Red Cell Distribution Width 14.1 % (11.5-14.5); Segmented Neutrophils % 46.6 %; White Blood Count 5.3 K/mcL (4.3-11.1)
[2019-12-24] MEDS: *HR* Heparin 5,000 UNIT/ML VIAL SQ SCH ×3 (05:43→20:27)
[2019-12-24] MEDS: Ringers Solution, Lactated 1,000 ML IVC SCH (05:44)
[2019-12-24 05:52] LABS: Calcium 8.8 mg/dL (8.6-10.3); Potassium 4.4 mEq/L (3.5-5.1)
[2019-12-24] MEDS: Insulin LISPRO 300 UNITS/3 ML VIAL SQ SCH ×4 (08:17→20:28)
[2019-12-24] MEDS: Aspirin 81 MG TAB.CHEW PO SCH (08:26)
[2019-12-24] MEDS: carvediloL 6.25 MG TABLET PO SCH ×2 (08:26→17:20)
[2019-12-24] MEDS: *HR* Amiodarone 200 MG TABLET PO SCH (08:26)
[2019-12-24] MEDS: Thiamine (B-1) 100 MG TABLET PO SCH (08:26)
[2019-12-24] MEDS: PARoxetine 20 MG TABLET PO SCH (08:26)
[2019-12-24] MEDS: Nystatin SUSP 5 ML UD.LIQ PO SCH ×4 (08:27→20:28)
[2019-12-25] MEDS: *HR* Heparin 5,000 UNIT/ML VIAL SQ SCH ×3 (05:15→21:28)
[2019-12-25] MEDS: Ondansetron 4 MG/2 ML VIAL IVP PRN ×2 (05:16→16:40)
[2019-12-25] MEDS: Morphine Sulfate 2 MG/ML SYRINGE IVP PRN (05:20)
[2019-12-25] MEDS: *HR* OxyCODONE/APAP 5/325 TABLET PO PRN ×4 (06:22→21:27)
[2019-12-25] MEDS: Aspirin 81 MG TAB.CHEW PO SCH (07:33)
[2019-12-25] MEDS: PARoxetine 20 MG TABLET PO SCH (07:33)
[2019-12-25] MEDS: *HR* Amiodarone 200 MG TABLET PO SCH (07:34)
[2019-12-25] MEDS: Nystatin SUSP 5 ML UD.LIQ PO SCH ×4 (07:34→19:29)
[2019-12-25] MEDS: Thiamine (B-1) 100 MG TABLET PO SCH (07:34)
[2019-12-25] MEDS: carvediloL 6.25 MG TABLET PO SCH ×2 (07:37→16:37)
[2019-12-25] MEDS: Insulin LISPRO 300 UNITS/3 ML VIAL SQ SCH ×4 (07:38→19:30)
[2019-12-25] MEDS ORDERED: Furosemide 20 MG/2 ML VIAL IVP ONE (08:09)
[2019-12-25] MEDS: lisinopriL 10 MG TABLET PO SCH (08:23)
[2019-12-26] MEDS: *HR* OxyCODONE/APAP 5/325 TABLET PO PRN ×4 (03:16→17:34)
[2019-12-26 06:10] LABS: Basophils # 0.1 K/mcL (0.0-0.2); Basophils % 0.8 %; Eosinophils # 0.4 K/mcL (0.0-0.6); Eosinophils % 6.5 %; Hematocrit 28.5 % (37.5-50.1); Hemoglobin 8.8 g/dL (12.9-16.9); Immature Granulocytes % 0.3 % (0-4); Lymphocytes # 1.5 K/mcL (0.6-4.6); Lymphocytes % 23.7 %; Mean Corpuscular HGB Conc 30.9 g/dL (31.6-35.5); Mean Corpuscular Hemoglobin 29.9 pg (28.0-33.3); Mean Corpuscular Volume 96.9 fL (83.0-100.0); Mean Platelet Volume 9.6 fL (9.4-12.4); Monocytes # 0.8 K/mcL (0.0-1.3); Monocytes % 12.5 %; Neutrophils # 3.5 K/mcL (1.6-8.9); Platelet Count 458 K/mcL (140-400); Red Blood Count 2.94 M/mcL (4.19-5.50); Red Cell Distribution Width 14.4 % (11.5-14.5); Segmented Neutrophils % 56.2 %; White Blood Count 6.2 K/mcL (4.3-11.1)
[2019-12-26 06:28] LABS: Calcium 8.9 mg/dL (8.6-10.3); Potassium 4.6 mEq/L (3.5-5.1)
[2019-12-26] MEDS: *HR* Heparin 5,000 UNIT/ML VIAL SQ SCH ×2 (06:34→13:42)
[2019-12-26] MEDS: Aspirin 81 MG TAB.CHEW PO SCH (07:28)
[2019-12-26] MEDS: PARoxetine 20 MG TABLET PO SCH (07:28)
[2019-12-26] MEDS: Nystatin SUSP 5 ML UD.LIQ PO SCH ×4 (07:29→19:45)
[2019-12-26] MEDS: lisinopriL 10 MG TABLET PO SCH (07:29)
[2019-12-26] MEDS: Insulin LISPRO 300 UNITS/3 ML VIAL SQ SCH ×4 (07:29→19:49)
[2019-12-26] MEDS: carvediloL 6.25 MG TABLET PO SCH ×2 (07:29→17:34)
[2019-12-26] MEDS: *HR* Amiodarone 200 MG TABLET PO SCH (07:29)
[2019-12-26] MEDS: Thiamine (B-1) 100 MG TABLET PO SCH (07:29)
[2019-12-26] MEDS: Ondansetron 4 MG/2 ML VIAL IVP PRN (17:36)
[2019-12-26] MEDS: Morphine Sulfate 2 MG/ML SYRINGE IVP PRN (20:29)
[2019-12-27] MEDS: *HR* Heparin 5,000 UNIT/ML VIAL SQ SCH ×2 (00:10→06:53)
[2019-12-27] MEDS: *HR* OxyCODONE/APAP 5/325 TABLET PO PRN ×3 (00:10→07:50)
[2019-12-27 06:43] LABS: Basophils # 0.1 K/mcL (0.0-0.2); Basophils % 1.1 %; Eosinophils # 0.5 K/mcL (0.0-0.6); Eosinophils % 7.2 %; Hematocrit 28.6 % (37.5-50.1); Immature Granulocytes % 0.3 % (0-4); Lymphocytes # 1.6 K/mcL (0.6-4.6); Lymphocytes % 25.2 %; Mean Corpuscular HGB Conc 31.5 g/dL (31.6-35.5); Mean Corpuscular Hemoglobin 30.2 pg (28.0-33.3); Mean Platelet Volume 9.8 fL (9.4-12.4); Monocytes # 0.9 K/mcL (0.0-1.3); Monocytes % 13.3 %; Neutrophils # 3.5 K/mcL (1.6-8.9); Platelet Count 437 K/mcL (140-400); Red Blood Count 2.98 M/mcL (4.19-5.50); Red Cell Distribution Width 14.3 % (11.5-14.5); Segmented Neutrophils % 52.9 %; White Blood Count 6.5 K/mcL (4.3-11.1)
[2019-12-27 06:44] VITALS: BP 148/73
[2019-12-27 07:02] LABS: Calcium 9.1 mg/dL (8.6-10.3); Potassium 4.8 mEq/L (3.5-5.1)
[2019-12-27] MEDS: Insulin LISPRO 300 UNITS/3 ML VIAL SQ SCH (07:50)
[2019-12-27] MEDS: PARoxetine 20 MG TABLET PO SCH (07:51)
[2019-12-27] MEDS: lisinopriL 10 MG TABLET PO SCH (07:51)
[2019-12-27] MEDS: *HR* Amiodarone 200 MG TABLET PO SCH (07:51)
[2019-12-27] MEDS: Thiamine (B-1) 100 MG TABLET PO SCH (07:51)
[2019-12-27] MEDS: Aspirin 81 MG TAB.CHEW PO SCH (07:51)
[2019-12-27] MEDS: carvediloL 6.25 MG TABLET PO SCH (07:51)
[2019-12-27] MEDS: Morphine Sulfate 2 MG/ML SYRINGE IVP PRN (10:51)
[2019-12-27] MEDS: Nystatin SUSP 5 ML UD.LIQ PO SCH (12:09)
== END 2019-12-27 15:30 | DRG 165 ==
LOC: EMEROOARM 10:40 → 2NENU 10:40 → SUATTDRO 13:52 → 2ANU 14:59 → 2NNU 16:07 → 2ANU 11-29 17:58 → 2NNU 11-30 11:14 → ICNU 12-05 07:43 → 2NNU 12-08 16:33 → ICNU 12-09 19:13 → 2NNU 12-20 16:51
PROVIDERS: ADMIT Internal Medicine; ATTEND Student in an Organized Health Care Education/Training Program
PROC: ENDOBRF (2019-12-16 08:00)

== ENCOUNTER 2020-03-13 00:11 | Inpatient (IN) ==
[2020-03-13] MEDS ORDERED: Aspirin 81 MG TAB.CHEW PO ONE (00:15)
[2020-03-13 00:46] LABS: Basophils % 0.5 %; Eosinophils # 0.3 K/mcL (0.0-0.6); Hematocrit 34.2 % (37.5-50.1); Hemoglobin 10.7 g/dL (12.9-16.9); Immature Granulocytes % 0.4 % (0-4); Lymphocytes # 1.8 K/mcL (0.6-4.6); Lymphocytes % 23.8 %; Mean Corpuscular HGB Conc 31.3 g/dL (31.6-35.5); Mean Corpuscular Hemoglobin 28.2 pg (28.0-33.3); Mean Platelet Volume 9.5 fL (9.4-12.4); Monocytes # 0.8 K/mcL (0.0-1.3); Neutrophils # 4.7 K/mcL (1.6-8.9); Platelet Count 296 K/mcL (140-400); Red Cell Distribution Width 15.5 % (11.5-14.5); Segmented Neutrophils % 61.3 %; White Blood Count 7.6 K/mcL (4.3-11.1)
[2020-03-13 00:52] LABS: INR 1.2; Prothrombin Time 13.7 Seconds (9.4-12.1)
[2020-03-13 00:55] LABS: Activated Partial Thrombo Time 34.6 Seconds (26.0-36.0)
[2020-03-13 01:11] LABS: Alanine Aminotransferase 11 Units/L (7-52); Albumin 3.3 g/dL (3.5-5.7); Albumin/Globulin Ratio 0.9 (1.1-2.2); Alkaline Phosphatase 140 Units/L (34-104); Aspartate Amino Transferase 12 Units/L (13-39); BUN/Creatinine Ratio 22 (6-26); Bilirubin,Direct 0.1 mg/dL (0.0-0.2); Bilirubin,Indirect 0.4 mg/dL (0.0-1.0); Bilirubin,Total 0.5 mg/dL (0.3-1.0); Blood Urea Nitrogen 31 mg/dL (8-23); Calcium 9.6 mg/dL (8.6-10.3); Carbon Dioxide 24 mEq/L (23-29); Chloride 104 mEq/L (98-107); Globulin 3.8 g/dL (2.4-3.5); Glucose 248 mg/dL (70-105); Osmolality,Calculated 297 (280-300); Potassium 4.4 mEq/L (3.5-5.1); Sodium 136 mEq/L (136-145); Total Protein 7.1 g/dL (6.4-8.9); Troponin I 0.08 ng/mL (< 0.04); eGFR For African Americans > 60 (> 60); eGFR For Non-African Americans 51 (> 60)
[2020-03-13] MEDS ORDERED: Furosemide 40 MG/4 ML VIAL IVP ONE (01:24)
[2020-03-13] MEDS ORDERED: Naloxone 0.4 MG/ML INJ IVP PRN (03:48)
[2020-03-13] MEDS ORDERED: Acetaminophen 325 MG TABLET PO PRN (03:48)
[2020-03-13] MEDS ORDERED: Melatonin 3 MG TABLET PO PRN (03:53)
[2020-03-13] MEDS: *HR* HYDROcodone/Acet 5/325 mg TABLET PO PRN (06:04)
[2020-03-13] MEDS ORDERED: Dextrose Gel 15 GM/37.5 ML TUBE PO PRN ×2 (06:42)
[2020-03-13] MEDS ORDERED: D5% in Water 1,000 ML IVC PRN (06:42)
[2020-03-13] MEDS ORDERED: *HR* Dextrose 50 % in Water (Vial) 50 ML VIAL IVP PRN (06:42)
[2020-03-13] MEDS: Aspirin 81 MG TAB.CHEW PO SCH (07:35)
[2020-03-13] MEDS: Isosorbide MONOnitrate (24 HR) 30 MG TAB.ER.24H PO SCH (07:35)
[2020-03-13] MEDS: Metoprolol XL (24 HR) Succ 50 MG TAB.ER.24H PO SCH (07:35)
[2020-03-13] MEDS: Insulin LISPRO 300 UNITS/3 ML VIAL SQ SCH ×4 (07:39→20:36)
[2020-03-13] MEDS ORDERED: Nitroglycerin 0.4 MG TAB.SUBL SL PRN (07:45)
[2020-03-13] MEDS ORDERED: *HR* Rivaroxaban 15 MG TABLET PO SCH (09:00)
[2020-03-13] MEDS: *HR* Amiodarone 200 MG TABLET PO SCH (10:33)
[2020-03-13] MEDS: lisinopriL 10 MG TABLET PO SCH (10:33)
[2020-03-13] MEDS: Furosemide 40 MG/4 ML VIAL IVP SCH ×2 (10:33→20:32)
[2020-03-13] MEDS ORDERED: Heparin 25,000UNIT/250ML 1/2NS 25,000 UNIT/250 ML IV.SOLN IVC SCH (17:00)
[2020-03-13 18:07] LABS: Hematocrit 30.7 % (37.5-50.1); Hemoglobin 9.6 g/dL (12.9-16.9); Mean Corpuscular HGB Conc 31.3 g/dL (31.6-35.5); Mean Corpuscular Hemoglobin 28.1 pg (28.0-33.3); Mean Corpuscular Volume 89.8 fL (83.0-100.0); Mean Platelet Volume 9.5 fL (9.4-12.4); Platelet Count 287 K/mcL (140-400); Red Blood Count 3.42 M/mcL (4.19-5.50); Red Cell Distribution Width 15.4 % (11.5-14.5); White Blood Count 5.7 K/mcL (4.3-11.1)
[2020-03-13 18:28] LABS: Heparin anti-factor XA UFH 0.25 IU/mL (0.30-0.70); INR 1.4; Prothrombin Time 15.7 Seconds (9.4-12.1)
[2020-03-13] MEDS ORDERED: 0.9 % Sodium Chloride 500 ML IV ONE ×2 (23:54→23:56)
[2020-03-14 01:14] LABS: Calcium 8.3 mg/dL (8.6-10.3); Potassium 4.5 mEq/L (3.5-5.1)
[2020-03-14] MEDS ORDERED: *HR* Heparin 5,000 UNIT/ML VIAL IVP PRN ×2 (07:30)
[2020-03-14] MEDS ORDERED: Heparin 25,000UNIT/250ML 1/2NS 25,000 UNIT/250 ML IV.SOLN IVC SCH (07:30)
[2020-03-14] MEDS: Isosorbide MONOnitrate (24 HR) 30 MG TAB.ER.24H PO SCH (08:06)
[2020-03-14] MEDS: Aspirin 81 MG TAB.CHEW PO SCH (08:06)
[2020-03-14] MEDS: *HR* Amiodarone 200 MG TABLET PO SCH (08:07)
[2020-03-14] MEDS: lisinopriL 10 MG TABLET PO SCH (08:07)
[2020-03-14] MEDS: Insulin LISPRO 300 UNITS/3 ML VIAL SQ SCH ×4 (08:07→19:47)
[2020-03-14] MEDS: Furosemide 40 MG/4 ML VIAL IVP SCH ×2 (08:08→19:48)
[2020-03-14] MEDS: Metoprolol XL (24 HR) Succ 50 MG TAB.ER.24H PO SCH (08:08)
[2020-03-14] MEDS: Ondansetron 4 MG/2 ML VIAL IVP PRN ×2 (13:36→19:51)
[2020-03-14] MEDS: *HR* Rivaroxaban 15 MG TABLET PO SCH (16:09)
[2020-03-14] MEDS: *HR* HYDROcodone/Acet 5/325 mg TABLET PO PRN (20:03)
[2020-03-15 01:25] LABS: Hematocrit 27.5 % (37.5-50.1); Hemoglobin 8.5 g/dL (12.9-16.9); Mean Corpuscular HGB Conc 30.9 g/dL (31.6-35.5); Mean Corpuscular Hemoglobin 28.2 pg (28.0-33.3); Mean Corpuscular Volume 91.4 fL (83.0-100.0); Platelet Count 275 K/mcL (140-400); Red Blood Count 3.01 M/mcL (4.19-5.50); Red Cell Distribution Width 15.5 % (11.5-14.5); White Blood Count 5.9 K/mcL (4.3-11.1)
[2020-03-15 01:41] LABS: Calcium 8.1 mg/dL (8.6-10.3); Magnesium 1.9 mg/dL (1.6-2.6); Potassium 4.7 mEq/L (3.5-5.1)
[2020-03-15] MEDS: lisinopriL 10 MG TABLET PO SCH (08:31)
[2020-03-15] MEDS: *HR* Amiodarone 200 MG TABLET PO SCH (08:31)
[2020-03-15] MEDS: Isosorbide MONOnitrate (24 HR) 30 MG TAB.ER.24H PO SCH (08:31)
[2020-03-15] MEDS: Furosemide 40 MG TABLET PO SCH (08:32)
[2020-03-15] MEDS: Insulin LISPRO 300 UNITS/3 ML VIAL SQ SCH ×4 (08:32→21:06)
[2020-03-15] MEDS: Aspirin 81 MG TAB.CHEW PO SCH (08:32)
[2020-03-15] MEDS: Metoprolol XL (24 HR) Succ 50 MG TAB.ER.24H PO SCH (08:33)
[2020-03-15] MEDS: *HR* HYDROcodone/Acet 5/325 mg TABLET PO PRN ×2 (08:40→19:52)
[2020-03-15] MEDS: Ondansetron 4 MG/2 ML VIAL IVP PRN ×2 (08:41→19:52)
[2020-03-15] MEDS: carvediloL 6.25 MG TABLET PO SCH (17:17)
[2020-03-15] MEDS: *HR* Rivaroxaban 15 MG TABLET PO SCH (17:21)
[2020-03-16 01:40] LABS: Hematocrit 30.2 % (37.5-50.1); Hemoglobin 9.1 g/dL (12.9-16.9); Mean Corpuscular HGB Conc 30.1 g/dL (31.6-35.5); Mean Corpuscular Hemoglobin 27.7 pg (28.0-33.3); Mean Corpuscular Volume 91.8 fL (83.0-100.0); Mean Platelet Volume 10.5 fL (9.4-12.4); Platelet Count 324 K/mcL (140-400); Red Blood Count 3.29 M/mcL (4.19-5.50); Red Cell Distribution Width 15.5 % (11.5-14.5); White Blood Count 7.5 K/mcL (4.3-11.1)
[2020-03-16] MEDS: *HR* HYDROcodone/Acet 5/325 mg TABLET PO PRN (03:21)
[2020-03-16] MEDS: Ondansetron 4 MG/2 ML VIAL IVP PRN (03:21)
[2020-03-16 03:59] LABS: Calcium 8.9 mg/dL (8.6-10.3); Potassium 5.5 mEq/L (3.5-5.1)
[2020-03-16 07:08] VITALS: BP 114/66
[2020-03-16] MEDS: carvediloL 6.25 MG TABLET PO SCH (08:00)
[2020-03-16] MEDS: Aspirin 81 MG TAB.CHEW PO SCH (08:00)
[2020-03-16] MEDS: lisinopriL 10 MG TABLET PO SCH (08:00)
[2020-03-16] MEDS: Isosorbide MONOnitrate (24 HR) 30 MG TAB.ER.24H PO SCH (08:00)
[2020-03-16] MEDS: *HR* Amiodarone 200 MG TABLET PO SCH (08:00)
[2020-03-16] MEDS: Furosemide 40 MG TABLET PO SCH (08:01)
[2020-03-16] MEDS: Insulin LISPRO 300 UNITS/3 ML VIAL SQ SCH (08:09)
== END 2020-03-16 10:32 | disposition home or self-care (01) | DRG 194 ==
LOC: EMEROOARM 00:11 → 3BNU 00:11
PROVIDERS: ADMIT Family Medicine; ATTEND Family Medicine

== ENCOUNTER 2020-03-26 20:51 | Observation (INO) ==
[2020-03-26] MEDS ORDERED: Furosemide 40 MG in 0.9 % Sodium Chloride 50 ML IVPB ONE (21:26)
[2020-03-26] MEDS ORDERED: Furosemide 40 MG/4 ML VIAL IVP ONE (21:30)
[2020-03-26 21:37] LABS: Basophils # 0.1 K/mcL (0.0-0.2); Basophils % 0.6 %; Eosinophils # 0.3 K/mcL (0.0-0.6); Eosinophils % 2.9 %; Hematocrit 33.9 % (37.5-50.1); Hemoglobin 10.7 g/dL (12.9-16.9); Immature Granulocytes % 0.3 % (0-4); Lymphocytes # 2.4 K/mcL (0.6-4.6); Lymphocytes % 22.6 %; Mean Corpuscular HGB Conc 31.6 g/dL (31.6-35.5); Mean Corpuscular Hemoglobin 28.9 pg (28.0-33.3); Mean Corpuscular Volume 91.6 fL (83.0-100.0); Mean Platelet Volume 9.8 fL (9.4-12.4); Monocytes # 0.8 K/mcL (0.0-1.3); Neutrophils # 6.9 K/mcL (1.6-8.9); Platelet Count 423 K/mcL (140-400); Red Cell Distribution Width 15.8 % (11.5-14.5); Segmented Neutrophils % 65.6 %; White Blood Count 10.5 K/mcL (4.3-11.1)
[2020-03-26 21:49] LABS: Calcium 10.4 mg/dL (8.6-10.3); Potassium 4.9 mEq/L (3.5-5.1)
[2020-03-26 21:59] LABS: Troponin I 0.05 ng/mL (< 0.04)
[2020-03-26] MEDS ORDERED: Ondansetron 4 MG/2 ML VIAL IVP ONE (22:25)
[2020-03-26] MEDS ORDERED: Acetaminophen 325 MG TABLET PO PRN (22:57)
[2020-03-26] MEDS ORDERED: Aspirin 325 MG TABLET PO ONE (23:30)
[2020-03-26] MEDS ORDERED: D5% in Water 1,000 ML IVC PRN (23:31)
[2020-03-26] MEDS ORDERED: *HR* Dextrose 50 % in Water (Vial) 50 ML VIAL IVP PRN (23:31)
[2020-03-26] MEDS ORDERED: Dextrose Gel 15 GM/37.5 ML TUBE PO PRN ×2 (23:31)
[2020-03-27] MEDS ORDERED: Amiodarone Premix 150 MG/100 ML BAG IVPB ONE (00:07)
[2020-03-27] MEDS ORDERED: Amiodarone Premix 360 MG/200 ML BAG IVC ONE (00:07)
[2020-03-27] MEDS: Insulin LISPRO 300 UNITS/3 ML VIAL SQ SCH ×5 (01:24→21:37)
[2020-03-27 01:46] LABS: Hematocrit 32.4 % (37.5-50.1); Mean Corpuscular HGB Conc 30.9 g/dL (31.6-35.5); Mean Corpuscular Hemoglobin 28.6 pg (28.0-33.3); Mean Corpuscular Volume 92.6 fL (83.0-100.0); Mean Platelet Volume 9.9 fL (9.4-12.4); Platelet Count 370 K/mcL (140-400); Red Cell Distribution Width 15.9 % (11.5-14.5); White Blood Count 9.4 K/mcL (4.3-11.1)
[2020-03-27 02:02] LABS: Calcium 10.2 mg/dL (8.6-10.3); Potassium 5.1 mEq/L (3.5-5.1)
[2020-03-27] MEDS: Ondansetron ODT 4 MG TAB.RAPDIS SL PRN ×3 (06:02→23:18)
[2020-03-27] MEDS: Amiodarone Premix 360 MG/200 ML BAG IVC SCH ×2 (07:03→21:35)
[2020-03-27] MEDS ORDERED: carvediloL 6.25 MG TABLET PO SCH (08:00)
[2020-03-27] MEDS: Aspirin 81 MG TAB.CHEW PO SCH (08:32)
[2020-03-27] MEDS: Furosemide 40 MG/4 ML VIAL IVP SCH ×2 (08:33→16:55)
[2020-03-27] MEDS ORDERED: Perflutren Lipid Microsphere 1.3 ML in 0.9 % Sodium Chloride 8.7 ML IVP PRN (13:43)
[2020-03-27] MEDS ORDERED: Ketorolac 15 MG/ML VIAL IVP PRN (15:53)
[2020-03-27] MEDS: carvediloL 6.25 MG TABLET PO SCH (16:54)
[2020-03-27] MEDS ORDERED: *HR* Rivaroxaban 15 MG TABLET PO SCH (17:00)
[2020-03-27] MEDS: *HR* Amiodarone 200 MG TABLET PO SCH (21:38)
[2020-03-27] MEDS ORDERED: Melatonin 3 MG TABLET PO PRN (21:48)
[2020-03-28 03:48] VITALS: BP 89/59
[2020-03-28 07:39] LABS: Basophils # 0.1 K/mcL (0.0-0.2); Basophils % 0.8 %; Eosinophils # 0.3 K/mcL (0.0-0.6); Eosinophils % 3.9 %; Hematocrit 35.2 % (37.5-50.1); Hemoglobin 10.4 g/dL (12.9-16.9); Immature Granulocytes % 0.4 % (0-4); Lymphocytes # 1.9 K/mcL (0.6-4.6); Lymphocytes % 25.8 %; Mean Corpuscular HGB Conc 29.5 g/dL (31.6-35.5); Mean Corpuscular Hemoglobin 27.6 pg (28.0-33.3); Mean Corpuscular Volume 93.4 fL (83.0-100.0); Mean Platelet Volume 10.2 fL (9.4-12.4); Monocytes # 0.7 K/mcL (0.0-1.3); Monocytes % 8.9 %; Neutrophils # 4.5 K/mcL (1.6-8.9); Platelet Count 380 K/mcL (140-400); Red Blood Count 3.77 M/mcL (4.19-5.50); Red Cell Distribution Width 15.9 % (11.5-14.5); Segmented Neutrophils % 60.2 %; White Blood Count 7.5 K/mcL (4.3-11.1)
[2020-03-28 07:56] LABS: Calcium 9.1 mg/dL (8.6-10.3); Magnesium 2.1 mg/dL (1.6-2.6)
[2020-03-28] MEDS: Insulin LISPRO 300 UNITS/3 ML VIAL SQ SCH (07:59)
[2020-03-28] MEDS ORDERED: 0.9 % Sodium Chloride 250 ML IV ONE ×2 (08:54→09:45)
[2020-03-28] MEDS: carvediloL 6.25 MG TABLET PO SCH (08:56)
[2020-03-28] MEDS ORDERED: Calcium Gluconate 1gm/50mL 1 GM/50 ML BAG IVPB ONE (08:56)
[2020-03-28] MEDS: Aspirin 81 MG TAB.CHEW PO SCH (09:14)
[2020-03-28] MEDS: *HR* Amiodarone 200 MG TABLET PO SCH (09:14)
[2020-03-28] MEDS ORDERED: *HR* Dextrose 50 % in Water (Vial) 50 ML VIAL IVP ONE (10:04)
[2020-03-28] MEDS ORDERED: Insulin Human Regular 10 UNIT in 0.9 % Sodium Chloride 10 ML IV ONE (10:04)
[2020-03-28] MEDS: Furosemide 40 MG/4 ML VIAL IVP SCH (10:34)
== END 2020-03-28 10:58 | disposition expired ==
LOC: 3BNU 20:51 → EMEROOARM 20:51 → SUATTDRO 22:48 → 3BNU 23:30 → 2NNU 03-27 01:00
PROVIDERS: ADMIT Internal Medicine; ATTEND Internal Medicine